=== PATIENT | female | born 1960 | race Caucasian/White ===

== ENCOUNTER 2024-04-11 14:50 | Emergency (ER) | payer OTHER, SELFPAY ==
--- NOTE | ~2024-04-11 | CT_ITS ---
EXAMINATION: CT KNEE WITHOUT CONTRAST, LEFT CLINICAL INFORMATION: Fall. Pain. COMPARISON: Plain film exam of left knee today TECHNIQUE: Axial images obtained through the left knee. Coronal and sagittal reformatted images are performed with CT scanner. This CT examination was performed using dose optimization techniques as appropriate, variously including the following: *Automated exposure control *Adjustment of mA and/or kV according to patient size (this includes techniques or standardized protocols for targeted exams where dose is matched to indication/reason for exam; i.e. extremities or head) *Use of iterative reconstruction technique DLP: 168 mGy-cm FINDINGS: No acute fracture. No dislocation. No lipohemarthrosis. There is a small joint effusion. There is marked degenerative change of the femoral-tibial joint. There is joint narrowing and marginal bone spurs about the medial lateral femoral tibial joint. There are small spurs of the patella and the femur at the patellofemoral joint. CT/CT knee LT wo IV con IMPRESSION: 1. No acute fracture or dislocation. 2. Small joint effusion. 3. Degenerative change of the knee. Electronically signed by: Jordan Morrison MD 04/11/2024 08:49 PM EDT
--- NOTE | ~2024-04-11 | XR_ITS ---
EXAMINATION: XR WRIST, LEFT CLINICAL INFORMATION: Radial and ulnar fractures COMPARISON: Wrist radiographs April 11, 2024 TECHNIQUE: PA, lateral, and oblique views of the left wrist. FINDINGS: Status post splinting with no significant change in the comminuted, mildly displaced intra-articular fracture of the distal radius, and ulnar styloid. Soft tissue swelling around the wrist. No new fractures identified. XR/XR wrist LT 2V IMPRESSION: Status post splinting with no significant change in the comminuted, mildly displaced intra-articular fracture of the distal radius, and ulnar styloid. Electronically signed by: Fabrizio Roldan MD 04/11/2024 08:23 PM EDT
--- NOTE | ~2024-04-11 | XR_ITS ---
EXAMINATION: XR KNEE, LEFT CLINICAL INFORMATION: Fall COMPARISON: None available. TECHNIQUE: Four views of the left knee. FINDINGS: No significant joint effusion. Bones are normal anatomic alignment with no acute fracture or dislocation. Tricompartmental degenerative changes seen more so in the lateral compartment with more significant loss of joint height, subchondral sclerosis, and osteophyte formation. XR/XR knee LT 3V IMPRESSION: Tricompartmental degenerative changes but no acute fracture or dislocation. Electronically signed by: Ziggy Webb MD 04/11/2024 05:49 PM EDT
--- NOTE | ~2024-04-11 | CT_ITS ---
EXAMINATION: CT HEAD WITHOUT CONTRAST CT CERVICAL SPINE WITHOUT CONTRAST CLINICAL INFORMATION: Fall. COMPARISON: None. TECHNIQUE: Contiguous axial imaging was performed from the skullbase to vertex without intravenous administration of contrast. Multidetector helical imaging was performed through the cervical spine. This CT examination was performed using dose optimization techniques as appropriate, variously including the following: *Automated exposure control *Adjustment of mA and/or kV according to patient size (this includes techniques or standardized protocols for targeted exams where dose is matched to indication/reason for exam; i.e. extremities or head) *Use of iterative reconstruction technique DLP: 1108 mGy-cm. FINDINGS: HEAD: There is no evidence of acute intracranial hemorrhage or territorial infarction. No abnormal mass effect or midline shift is seen. No extra-axial fluid collections are identified. Mild chronic white matter microangiopathic changes noted. No evidence of hydrocephalus. There is a chronic-appearing 7 mm lacunar infarct in the right paramedian kayy. Small lacunar infarcts are visible in the basal ganglia bilaterally. The osseous structures and soft tissues are normal. The mastoid air cells are well aerated. There is mild ethmoid sinus mucosal thickening. Moderate rightward nasal septal deviation. Secretions are present within both nasal passages. There are suspected polyps in the posterior nasal passages as well, partially protruding into the anterior nasopharyngeal airway. CERVICAL SPINE: No acute fracture or significant subluxation is identified in the cervical spine. There is severe disc space narrowing with endplate spurring at the C6-C7 level. Multilevel facet arthropathy present. The atlantoaxial articulation is normally maintained with moderate degenerative changes at the odontoid tip and anterior arch of C1. The paraspinal soft tissues are normal. Subsegmental atelectatic changes partially visualized in the lungs. CT/CT cervical spine wo IV con IMPRESSION: 1. No acute intracranial hemorrhage or territorial infarction. Chronic-appearing pontine lacunar infarct. Small lacunar infarcts in the basal ganglia which are age-indeterminate. If there is concern for an underlying acute ischemic process, recommend further evaluation with follow-up MR imaging. 2. No evidence of acute cervical spine traumatic injury. Severe spondylosis at the C6-C7 level. Multilevel facet arthropathy. Electronically signed by: John Sky MD 04/11/2024 04:43 PM EDT
--- NOTE | ~2024-04-11 | XR_ITS ---
EXAMINATION: XR WRIST, LEFT CLINICAL INFORMATION: Fall COMPARISON: None available. TECHNIQUE: PA, lateral, and oblique views of the left wrist. FINDINGS: Comminuted mildly displaced intra-articular fracture along the radial margin of the distal radius. Moderately displaced ulnar styloid fracture. Negative ulnar variance. Joint space and alignment are otherwise maintained. Soft tissue swelling overlying the dorsum of the wrist. XR/XR wrist LT min 3V IMPRESSION: 1. Comminuted mildly displaced intra-articular fracture along the radial margin of the distal radius. 2. Moderately displaced ulnar styloid fracture. 3. Negative ulnar variance. 4. Soft tissue swelling overlying the dorsum of the wrist. Electronically signed by: Dyllan Adkins MD 04/11/2024 04:10 PM EDT
[2024-04-11 15:00] VITALS: BP 188/96; PULSE 96; RESP 16; TEMP 36.6; O2SAT 95; BMI 37.3
--- NOTE | 2024-04-11 16:37 | ED_ITS ---
HPI - General Adult General Chief complaint: Fall Stated complaint: FALL,L WRIST PAIN/DEFORMITY,L KNEE PAIN PER EMS Time Seen by Provider: 04/11/24 16:08 History of Present Illness ED Provider: Sam HPI narrative: 63 y/o F patient; PMH breast CA on anastrazole; presents from out-patient office visit with report of mechanical trip and fall. The patient states the side walk had an unexpected curve and she fell forward. She landed on her left knee and then fell onto her head. She was going to hit face first with her glasses but used her left wrist to block her face. She does think she lost consciousness. EMS was called as should could not stand up and ambulate. EMS were concerned about a left wrist deformity. She otherwise denies: nausea/vomiting, headache, visual changes, chest pain, SOB, cough/congestion. Patient is not on anti- coagulation. Related Data Previous Rx's ?Medication ?Instructions ?Recorded oxycodone 5 mg capsule 5 mg PO Q6H PRN pain 3 days #9 caps 04/11/24 Allergies Allergy/AdvReac Type Severity Reaction Status Date / Time bee pollen [bee stings] Allergy Anaphylaxis Verified 04/11/24 15:04 latex Allergy Rash Verified 04/11/24 15:04 Review of Systems Review of Systems: Yes all other systems are reviewed and are negative Neurologic: Denies Sensory deficit (Neuro) PMF Past Medical History Attestation statement: The following information was validated with the patient. Source: unable to obtain Social History Social History Advance Directives: Yes Advance Directives Information Provided: No Advance Directives on File: No Do you have a plan to hurt others: No Plan Physical Exam ED Vital Signs: Vital Signs - 24 hr 04/11/24 15:00 04/11/24 18:43 Temperature 97.9 F 98.0 F Pulse Rate 96 102 H Respiratory Rate 16 20 Blood Pressure 188/96 H 157/98 H Pulse Oximetry 95 96 Oxygen Delivery Method Room Air Room Air BMI result Body Mass Index 37.3 Patient is afebrile, hypertensive, and hemodynamically stable. Const General: cooperative Orientation/consciousness: patient oriented x3 HENMT Head: Yes normal to inspection and Yes atraumatic Eyes General: appearance normal, both eyes and all related structures Pupils: Equal, round and reactive pupils present EOM: EOMs intact bilaterally Neck Other: c-collar in place Neck: No tender Chest Chest palpation & inspection: normal inspection of the chest and normal palpation of entire chest wall Resp Effort & Inspection: normal respiratory effort, able to speak in complete sentences and no respiratory distress Auscultation: clear to auscultation bilaterally Cardio Rate: regular rate Rhythm: regular rhythm Peripheral pulses: Peripheral pulses 2+ throughout GI Inspection: No Abdominal wall edema and No distended Palpation (GI): Soft to palpation, not firm, nontender, no guarding and not rigid Auscultation: normal bowel sounds Back/Spine/Pelvis Back: No back tenderness Neuro General: patient oriented x3 Cranial nerves: Yes Equal, round and reactive pupils present Motor exam (neuro): 5/5 motor strength present throughout Sensory Exam: No Sensory deficit (Neuro) Extrem Other: Left wrist deformity. Small medial abrasion. No elbow or hand tenderness/pain. NVI. Left knee abrasion. Pain with range of left knee. NVI. No foot/ankle/tibia/fibula/hip pain/tenderness. Atraumatic right upper and lower extremities. Course Course Course Narrative: Patient is afebrile, hypertensive, hemodynamically stable. Will obtain CT Head/Neck. XR Left wrist and XR Left knee. CT head and neck unremarkable for acute trauma. XR left wrist with comminuted mildly displaced intra-articular fx along the radial margin of the distal radius, moderately displaced ulnar styloid fracture. XR left knee without acute fx. Ordered CT LLE due to patient's continued pain and inability to ambulate. Please see procedure note for hematoma block and splint placement on left wrist. Patient received pain control with Oxycodone 5mg x2 and Ativan 1mg x1. CT lower extremity is unremarkable. Patient is ambulating without difficulty now. Plan for padmaja wrap left knee. Provided dose of Anastrazole in the ED. Discharge to home with orthopedic follow up Return precautions given Medications Administered Discontinued Medications Generic Name Dose Route Start Last Admin Trade Name Freq PRN Reason Stop Dose Admin Anastrozole 1 mg 04/11/24 19:08 04/11/24 20:04 Anastrozole 1 Mg Tablet PO 04/11/24 19:09 1 mg ONCE ONE Administration Bupivacaine HCl 10 ml 04/11/24 16:43 04/11/24 17:54 Bupivacaine Mpf 0.75 % 10 Ml Vial INFILTRATI 04/11/24 16:44 10 ml ONCE ONE Administration Lidocaine/Epinephrine 10 ml 04/11/24 16:43 04/11/24 17:54 Lidocaine Hcl 2% Pf/Epi 1:200 20 Ml Vial INFILTRATI 04/11/24 16:44 10 ml ONCE ONE Administration Lorazepam 1 mg 04/11/24 17:46 04/11/24 17:52 Lorazepam 1 Mg Tablet PO 04/11/24 17:47 1 mg ONCE ONE Administration Oxycodone HCl 5 mg 04/11/24 16:37 04/11/24 17:03 Oxycodone Hcl Immed Release 5 Mg Tablet PO 04/11/24 16:38 5 mg ONCE ONE Administration Oxycodone HCl 5 mg 04/11/24 17:46 04/11/24 17:52 Oxycodone Hcl Immed Release 5 Mg Tablet PO 04/11/24 17:47 5 mg ONCE ONE Administration Procedures Orthopedic Fracture Reduction Fracture #1: Time Out Performed: Yes Side: left Fracture Reduction Location: radius and ulna Analgesia: hematoma block Technique: traction/counter-traction Post Reduction X-rays Demonstrate: anatomical reduction Post-reduction neuro exam: intact Post-reduction vascular exam: intact Splint Applied: Yes Patient Tolerated Procedure: well Orthopedic Splinting/Casting Injury #1: Side: left Upper Extremity Injury Location: wrist Upper Extremity Immobilizer: sling/shoulder immobilizer and sugar tong splint Medical Decision Making Radiology Impression Discussion of test interpretation with radiology: I have reviewed the radiologist's reading. Radiologist Impression: EXAMINATION: CT HEAD WITHOUT CONTRAST CT CERVICAL SPINE WITHOUT CONTRAST CLINICAL INFORMATION: Fall. COMPARISON: None. TECHNIQUE: Contiguous axial imaging was performed from the skullbase to vertex without intravenous administration of contrast. Multidetector helical imaging was performed through the cervical spine. This CT examination was performed using dose optimization techniques as appropriate, variously including the following: *Automated exposure control *Adjustment of mA and/or kV according to patient size (this includes techniques or standardized protocols for targeted exams where dose is matched to indication/reason for exam; i.e. extremities or head) *Use of iterative reconstruction technique DLP: 1108 mGy-cm. FINDINGS: HEAD: There is no evidence of acute intracranial hemorrhage or territorial infarction. No abnormal mass effect or midline shift is seen. No extra-axial fluid collections are identified. Mild chronic white matter microangiopathic changes noted. No evidence of hydrocephalus. There is a chronic-appearing 7 mm lacunar infarct in the right paramedian kayy. Small lacunar infarcts are visible in the basal ganglia bilaterally. The osseous structures and soft tissues are normal. The mastoid air cells are well aerated. There is mild ethmoid sinus mucosal thickening. Moderate rightward nasal septal deviation. Secretions are present within both nasal passages. There are suspected polyps in the posterior nasal passages as well, partially protruding into the anterior nasopharyngeal airway. CERVICAL SPINE: No acute fracture or significant subluxation is identified in the cervical spine. There is severe disc space narrowing with endplate spurring at the C6-C7 level. Multilevel facet arthropathy present. The atlantoaxial articulation is normally maintained with moderate degenerative changes at the odontoid tip and anterior arch of C1. The paraspinal soft tissues are normal. Subsegmental atelectatic changes partially visualized in the lungs. CT/CT cervical spine wo IV con IMPRESSION: 1. No acute intracranial hemorrhage or territorial infarction. Chronic-appearing pontine lacunar infarct. Small lacunar infarcts in the basal ganglia which are age-indeterminate. If there is concern for an underlying acute ischemic process, recommend further evaluation with follow-up MR imaging. 2. No evidence of acute cervical spine traumatic injury. Severe spondylosis at the C6-C7 level. Multilevel facet arthropathy. Electronically signed by: John Sky MD 04/11/2024 04:43 PM EDT EXAMINATION: XR WRIST, LEFT CLINICAL INFORMATION: Fall COMPARISON: None available. TECHNIQUE: PA, lateral, and oblique views of the left wrist. FINDINGS: Comminuted mildly displaced intra-articular fracture along the radial margin of the distal radius. Moderately displaced ulnar styloid fracture. Negative ulnar variance. Joint space and alignment are otherwise maintained. Soft tissue swelling overlying the dorsum of the wrist. XR/XR wrist LT min 3V IMPRESSION: 1. Comminuted mildly displaced intra-articular fracture along the radial margin of the distal radius. 2. Moderately displaced ulnar styloid fracture. 3. Negative ulnar variance. 4. Soft tissue swelling overlying the dorsum of the wrist. Electronically signed by: Dyllan Adkins MD 04/11/2024 04:10 PM EDT EXAMINATION: XR KNEE, LEFT CLINICAL INFORMATION: Fall COMPARISON: None available. TECHNIQUE: Four views of the left knee. FINDINGS: No significant joint effusion. Bones are normal anatomic alignment with no acute fracture or dislocation. Tricompartmental degenerative changes seen more so in the lateral compartment with more significant loss of joint height, subchondral sclerosis, and osteophyte formation. XR/XR knee LT 3V IMPRESSION: Tricompartmental degenerative changes but no acute fracture or dislocation. Electronically signed by: Ziggy Webb MD 04/11/2024 05:49 PM EDT EXAMINATION: CT KNEE WITHOUT CONTRAST, LEFT CLINICAL INFORMATION: Fall. Pain. COMPARISON: Plain film exam of left knee today TECHNIQUE: Axial images obtained through the left knee. Coronal and sagittal reformatted images are performed with CT scanner. This CT examination was performed using dose optimization techniques as appropriate, variously including the following: *Automated exposure control *Adjustment of mA and/or kV according to patient size (this includes techniques or standardized protocols for targeted exams where dose is matched to indication/reason for exam; i.e. extremities or head) *Use of iterative reconstruction technique DLP: 168 mGy-cm FINDINGS: No acute fracture. No dislocation. No lipohemarthrosis. There is a small joint effusion. There is marked degenerative change of the femoral-tibial joint. There is joint narrowing and marginal bone spurs about the medial lateral femoral tibial joint. There are small spurs of the patella and the femur at the patellofemoral joint. CT/CT knee LT wo IV con IMPRESSION: 1. No acute fracture or dislocation. 2. Small joint effusion. 3. Degenerative change of the knee. Electronically signed by: Jordan Morrison MD 04/11/2024 08:49 PM EDT Discharge Plan Discharge Clinical Impression: Fracture of wrist Patient Disposition: Home, Self-Care Instructions: Arm Fracture in Adults (ED) Additional Instructions: As we discussed, you were seen today after a fall. Your CT Head and Neck were reassuring. Your XR of your left wrist showed a broken ulna and radius, you were placed in a splint. Please call to schedule an appointment with orthopedics within 1 day. The pain medication as following: Tylenol 650mg every 6 hours Ibuprofen 400mg every 6 hours Oxycodone every 6 hours as needed Tylenol @ 8am Ibuprofen @ 11am Tylenol @ 2pm Ibuprofen @ 5pm Etc. Then add the oxycodone if you're still having pain. Follow up with your PCP within 1 - 2 days for a re-evaluation and to discuss your recent ED visit. Prescriptions: New oxycodone 5 mg capsule 5 mg PO Q6H PRN (Reason: pain) 3 Days Qty: 9 0RF Rx Instructions: Partial Fill upon patient request. Referrals: Herman Cesar MD [Physician] - 1 day Print Language: Citizen Of [place]
[2024-04-11] MEDS: oxyCODONE HCl Immed Release 5 MG TABLET PO ×2 (17:03→17:52)
[2024-04-11] MEDS: LORazepam 1 MG TABLET PO (17:52)
[2024-04-11] MEDS: Lidocaine HCl 2% PF/Epi 1:200 20 ML VIAL 10 ML INFILTRATI (17:54)
--- NOTE | 2024-04-11 18:37 | PC.NURSE ---
patient wrist splinted by MD, patient tolerated well.
[2024-04-11 18:43] VITALS: BP 157/98; PULSE 102; RESP 20; TEMP 36.7; O2SAT 96
--- OUTSIDE RECORDS SUMMARY | 2024-04-11 18:48 | XMS_ITS | Continuity of Care Document ---
Author Organization [facility] ter Address [address] [place] [id number]- Care Team Providers Care Wind Tunnel Engineer Name Role Phone Evie Link MD Primary Care Physician Encounter [facility] [place] Date(s): 05/12/21 - 07/06/[address] [address]- Attending Physician: Deborah Diallo MD Admitting Physician: Deborah Diallo MD Referring Physician: Robbie Arias MD Allergies, Adverse Reactions, Alerts Substance Reaction Severity Status Imitrex Active Bee Stings horase voice, diff breathing. Active Latex Active Medications albuterol 0.083% inhalation solution 3 mL = 2.5 mg, Neb, Every 6 hours, 0 Refills, Maintenance, 02/21/20 11:18:00 EDT Start Date: 02/21/20 Status: Ordered aspirin 81 mg oral delayed release tablet 81 mg, 1, tablet, By Mouth, Daily, Refills 0, Maintenance, 05/20/21 10:53:00 EDT, Partial fill uponpatient request if the prescription is for a schedule II opioid drug. Start Date: 05/20/21 Status: Ordered Bathtub chair Bathtub chair, See Instructions, # 1 units, Refills 0, Tot. Refills 0, Maintenance, Use during bathing so arm is not submerged in water, 05/20/15 14:53:24, Compound Start Date: 05/20/15 Status: Ordered cholestyramine 4 g/5.5 g oral powder for reconstitution = 4 Gm, By Mouth, 2 times a day, 0 Refills, Maintenance, 02/21/20 11:18:00 EDT Start Date: 02/21/20 Status: Ordered EpiPen 2-[place] 0.3 mg injectable kit = 0.3 mg, Intramuscular, Once, For use with severe allergic reaction give one injection in the middle thigh, # 1 pair, 0 Refills, Soft Stop, 02/04/15 21:31:49 Start Date: 02/04/15 Status: Ordered Estrace Vaginal Cream 0.1 mg/g See Instructions, Pea-sized amount daily vaginally Daily at bedtime x 2 weeks and then three times weekly., # 42.5 Gm, 0 Refills, Maintenance, 04/03/20 10:26:00 EDT, [facility] #[id number], 166,cm, 02/21/20 10:50:00 EDT, Height, 102.1, kg, 02/20... Start Date: 04/03/20 Status: Ordered Flovent 110 mcg Inhaler HFA Refills 0, Maintenance, 02/21/20 11:18:00 EDT Start Date: 02/21/20 Status: Ordered hydrochlorothiazide 25 mg oral tablet 25 mg, 1, tablet, By Mouth, Daily, Refills 0, Maintenance, 02/21/20 11:17:00 EDT Start Date: 02/21/20 Status: Ordered Lipitor 40 mg oral tablet 1 tablet = 40 mg, By Mouth, Daily, 0 Refills, Maintenance, 02/21/20 11:17:00 EDT Start Date: 02/21/20 Status: Ordered losartan 100 mg oral tablet 1 tablet = 100 mg, By Mouth, Daily, 0 Refills, Maintenance, 02/21/20 11:10:00 EDT Start Date: 02/21/20 Status: Ordered losartan 25 mg oral tablet 1 tablet = 25 mg, By Mouth, Daily, # 30 tablet, 0 Refills, Maintenance, 04/15/15 9:34:58, Tablet Start Date: 04/15/15 Status: Ordered Naproxen By Mouth, PRN as needed for fever, 0 Refills, Maintenance, 06/28/17 9:29:02 Start Date: 06/28/17 Status: Ordered NuLYTELY with Flavor Packs oral powder for reconstitution 240 mL, By Mouth, Every 15 minutes, # 4,000 mL, 0 Refills, Maintenance, 06/28/17 9:47:41, 240 mL ByMouth Every 15 minutes Start Date: 12/4/17 Status: Ordered Pravastatin Tablet By Mouth, Daily at bedtime, Maintenance, 04/15/15 9:36:40 Start Date: 04/15/15 Status: Ordered Readi-Cat 2 oral suspension See Instructions, Per radiology's instructions, # 2 each, 0 Refills, Maintenance, 05/20/21 11:29:00EDT, [facility] #[id number], Partial fill upon patient request if the prescription is for a schedule II opioid drug., Per radiology's instructions... Start Date: 05/20/21 Status: Ordered SEROquel 50 mg oral tablet 1 tablet = 50 mg, By Mouth, 2 times a day, 0 Refills, Maintenance, 02/21/20 11:10:00 EDT Start Date: 02/21/20 Status: Ordered Vitamin B-12 100 mcg oral tablet 100 mcg, 1, tablet, By Mouth, Daily, Refills 0, Maintenance, 02/21/20 11:17:00 EDT Start Date: 02/21/20 Status: Ordered Zoloft 100 mg oral tablet 1 tablet = 100 mg, By Mouth, Daily, 0 Refills, Maintenance, 02/21/20 11:17:00 EDT Start Date: 02/21/20 Status: Ordered Problem List Condition Effective Dates Status Health Status Inform ant ASCUS (atypical squamous eliud ls of undetermined significance) on Pap smear(Confirmed) Active Anxiety(Confirmed) Active Cholelithiasis(Confirmed) Active Depression(Confirmed) Active Dyslipidemia(Confirmed) Active Rectocele(Confirmed) Active Hypertension(Confirmed) Active Urinary incontinence, mixed(Confirmed) Active Panic disorder(Confirmed) Active Sleep apnea(Confirmed) Active Social History Social History Type Response Smoking Status Never smoker entered on: 10/10/15 Sex Female
--- OUTSIDE RECORDS SUMMARY | 2024-04-11 18:48 | XMS_ITS | Continuity of Care Document ---
Author Organization [facility] Address [address] [place] [address]- Care Team Providers Care Sales Representative Public Utilities Name Role Phone Evie Link MD Primary Care Physician Encounter [facility] [place] Date(s): 06/03/22 - 07/03/[address] [address]- Attending Physician: Max Guevara Admitting Physician: Max Guevara Referring Physician: AdmtrMax Allergies, Adverse Reactions, Alerts Substance Reaction Severity Status Imitrex Active Bee Stings horase voice, diff breathing. Active Latex Active Medications acetaminophen 325 mg oral tablet 650 mg, By Mouth, Every 6 hours, May take OTC not to exceed 3000 mg/day, Refills 0, Maintenance, 12/13/21 8:04:00 EDT, Partial fill upon patient request if the prescription is for a schedule II opioid drug. Start Date: 12/13/21 Status: Ordered Aspirin Tablet 325 mg, By Mouth, 2 times a day, Refills 0, Maintenance, 12/13/21 8:04:00 EDT, Partial fill upon patient request if the prescription is for a schedule II opioid drug. Start Date: 12/13/21 Status: Ordered celecoxib 200 mg oral capsule 1 capsule = 200 mg, By Mouth, Daily, 0 Refills, Maintenance, 12/13/21 8:04:00 EDT, Capsule, Partialfill upon patient request if the prescription is for a schedule II opioid drug. Start Date: 12/13/21 Status: Ordered Colace Capsule 100 mg, 1, capsule, By Mouth, 2 times a day, Refills 0, Maintenance, 12/13/21 8:04:00 EDT, Partial fill upon patient request if the prescription is for a schedule II opioid drug. Start Date: 12/13/21 Status: Ordered hydrochlorothiazide-losartan 25 mg-100 mg oral tablet TAKE 1 TABLET BY MOUTH EVERY DAY Start Date: 12/05/21 Status: Ordered MiraLax Powder 1 pack/packet = 17 Gm, By Mouth, Daily, PRN Constipation, 0 Refills, Maintenance, 12/13/21 8:04:00 EDT, Powder, Partial fill upon patient request if the prescription is for a schedule II opioid drug. Start Date: 12/13/21 Status: Ordered pantoprazole 40 mg oral delayed release tablet = 40 mg, By Mouth, Daily, 0 Refills, Maintenance, 12/13/21 8:04:00 EDT, [facility] Tablet Start Date: 12/13/21 Status: Ordered QUEtiapine 25 mg oral tablet 50 mg, 2, tablet, By Mouth, Daily at bedtime, Refills 0, Maintenance, 12/13/21 8:05:00 EDT, Partialfill upon patient request if the prescription is for a schedule II opioid drug. Start Date: 12/13/21 Status: Ordered senna 187 mg oral tablet 1 tablet = 8.6 mg, By Mouth, Daily at bedtime, PRN as needed for constipation, 0 Refills, Maintenance, 12/13/21 8:05:00 EDT, Tablet, Partial fill upon patient request if the prescription is for a schedule II opioid drug. Start Date: 12/13/21 Status: Ordered Problem List Condition Confirmation Course Effective Dates Status H ealth Status Informant ASCUS (atypical squamous cells of undetermined significance) on Pap smear Confirmed Active Anxiety Confirmed Active Cholelithiasis Confirmed Active Depression Confirmed Active Dyslipidemia Confirmed Active Rectocele Confirmed Active Hypertension Confirmed Active Breast cancer Confirmed Active Urinary incontinence, mixed Confirmed Active Obese class II Confirmed Active Panic disorder Confirmed Active Sleep apnea Confirmed Active Social History Social History Type Response Smoking Status Never smoker entered on: 10/10/15 Sex Female Patient Care team information Care Team Personnel Name: Evie Link MD Position: [facility] Outreach Member Role: PCP Address: Address: [address] Evie Link [place], [place] [address] Name: Martha Rangel RN Position: [facility] RN Member Role: Primary Care Nurse Care Team Related Persons Name: NESTOR PANDYA Address: home [address] [address] Name: ALF PANDYA Address: home [address] [id number]
--- OUTSIDE RECORDS SUMMARY | 2024-04-11 18:48 | XMS_ITS | Continuity of Care Document ---
Author Organization [facility] Address [address] [place] [phone]- Care Team Providers Care Thermo Processor Name Role Phone Evie Link MD Primary Care Physician [phone] [place] [facility] [place] [facility] [address] [place] [address]- Attending Physician: Bre Riggs NP Referring Physician: Evie Link MD Allergies, Adverse Reactions, Alerts Substance Reaction [...] Gm, 0 Refills, Maintenance, 04/03/20 10:26:00 EDT, [facility] #[id number], 166,cm, 02/21/20 10:50:00 EDT, Height, 102.1, kg, [...] mL ByMouth Every 15 minutes Start Date: 06/28/17 Status: Ordered Readi-Cat 2 oral suspension See Instructions, Per radiology's instructions, # 2 each, 0 Refills, Maintenance, 05/20/21 11:29:00EDT, [facility] #[id number], Partial fill upon patient request if the [...] 11:17:00 EDT Start Date: 02/21/20 Status: Ordered Vitamin D3 1000 intl units oral tablet 1 tablet = 25 mcg, By Mouth, Daily, 0 Refills, Maintenance, 10/29/21 14:06:00 EDT, Partial fill upon patient request if the prescription is for a schedule II opioid drug. Start Date: 10/29/21 Status: Ordered Zoloft 100 mg oral tablet [...] Urinary incontinence, mixed(Confirmed) Active Panic disorder(Confirmed) Active Severe obesity(Confirmed) Active Sleep apnea(Confirmed) Active Social History Social History Type Response Smoking Status Never smoker entered on: 10/10/15 Sex Female
--- OUTSIDE RECORDS SUMMARY | 2024-04-11 18:48 | XMS_ITS | Continuity of Care Document ---
Author Organization [facility] Address [address] [place] [address]- Care Team Providers Care Digital Associate Media Director Name Role Phone Nikolay THOMPSON, Evie Denis Primary Care Physician [phone] [place] [facility] [place] [facility] [address] [place] [address]- Attending Physician: Bre Riggs NP Referring Physician: [...] Gm, 0 Refills, Maintenance, 04/03/20 10:26:00 EDT, [facility] #[id number], 166,cm, 02/21/20 10:50:00 EDT, Height, 102.1, kg, [...] 15 minutes Start Date: 06/28/17 Status: Ordered Pravastatin Tablet By Mouth, Daily at bedtime, Maintenance, 04/15/15 9:36:40 Start Date: 04/15/15 Status: Ordered Readi-Cat 2 oral suspension See Instructions, Per radiology's instructions, # 2 each, 0 Refills, Maintenance, 05/20/21 11:29:00EDT, [facility] #[id number], Partial fill upon patient request if the [...] Active Severe obesity(Confirmed) Active Sleep apnea(Confirmed) Active Vital Signs Most recent to oldest [Reference Range]: 1 2 Height 166 cm (09/24/21 2:24 PM) 166 cm (09/17/21 3:07 PM) Weight 111.1 kg (09/24/21 2:24 PM) 111.1 kg (09/17/21 3:07 PM) Oxygen Saturation [94-100 %] 96 % (09/17/21 3:07 PM) Pulse Rate [55-90 bpm] 94 bpm *H* (09/17/21 3:07 PM) Body Mass Index [18.5-24.99] 40.32 *>HHI* (09/17/21 3:07 PM) Blood Pressure [90-138/55-84 mm Hg] 131/ 75mm Hg (09/17/21 3:07 PM) Temperature [96.8-100.4 DegF] 97.3 DegF (09/17/21 3:07 PM) Blood pressure sites Arm, left (09/17/21 3:07 PM) Temperature Route Temporal (09/17/21 3:07 PM) Social History Social History Type Response Smoking Status Never smoker entered on: 10/10/15 Sex Female
--- OUTSIDE RECORDS SUMMARY | 2024-04-11 18:48 | XMS_ITS | Continuity of Care Document ---
Author Organization [facility] Address [address] [place] [address]- Care Team Providers Care Final Touch Up Painter Name Role Phone Evie Link MD Primary Care Physician En[place] [facility] [place] Date(s): 09/17/21 - 10/17/21 [facility] [address] [place] [address]- Attending Physician: Max Guevara Admitting Physician: Max [...] Gm, 0 Refills, Maintenance, 04/03/20 10:26:00 EDT, [facility] #[id number], 166,cm, 02/21/20 10:50:00 EDT, Height, 102.1, kg, [...] 2 each, 0 Refills, Maintenance, 05/20/21 11:29:00EDT, [facility] #[id number], Partial fill upon patient request if the [...]
--- OUTSIDE RECORDS SUMMARY | 2024-04-11 18:48 | XMS_ITS | Continuity of Care Document ---
Author Organization [facility] Address [address] [facility], 4t [place] [address]- Care Team Providers Care Ec Teacher Name Role Phone Evie Link MD Primary Care Physician [id number] Date[facility] 11/08/[facility] - 11/18/19 [facility] [address] [facility], 4th [place] [address]- Attending Physician: Admtr, Sheng8 Admitting Physician: Admtr, Ar8 Referring Physician: Admtr, Ar8 Allergies, Adverse Reactions, Alerts Substance Reaction Severity Status Imitrex Active Bee Stings horase voice, diff breathing. Active Latex Active Medications Bathtub chair Bathtub chair, See Instructions, # 1 units, Refills 0, Tot. Refills 0, Maintenance, Use during bathing so arm is not submerged in water, 05/20/15 14:53:24, Compound Start Date: 05/20/15 Status: Ordered EpiPen 2-Chapincito 0.3 mg injectable kit = 0.3 mg, Intramuscular, Once, For use with severe allergic reaction give one injection in the middle thigh, # 1 pair, 0 Refills, Soft Stop, 02/04/15 21:31:49 Start Date: 02/04/15 Status: Ordered losartan 25 mg oral tablet [...] 04/15/15 9:36:40 Start Date: 04/15/15 Status: Ordered Problem List Condition Effective Dates Status Health Status Inform ant ASCUS (atypical squamous eliud ls of undetermined significance) on Pap smear(Confirmed) Active Anxiety(Confirmed) Active Cholelithiasis(Confirmed) Active Depression(Confirmed) Active Dyslipidemia(Confirmed) Active Hypertension(Confirmed) Active Panic disorder(Confirmed) Active Sleep apnea(Confirmed) Active Urge urinary incontinence(Confirmed) Active Social History Social History Type Response Smoking Status Never smoker entered on: 10/10/15 Sex Female
--- OUTSIDE RECORDS SUMMARY | 2024-04-11 18:48 | XMS_ITS | Continuity of Care Document ---
Author Organization [facility] Address [address] [place] [address]- Care Team Providers Care Gauge Maker Apprentice Name Role Phone Evie Link MD Primary Care Physician [phone] Encounter 12/15/21 - 12/24/21 [facility] [address] [place] [address]- Discharge Disposition: GOALS MET Allergies, Adverse Reactions, Alerts Substance Reaction Severity [...] Date: 12/13/21 Status: Ordered Problem List Condition Effective Dates Status Health Status Inform ant ASCUS (atypical squamous eliud ls of undetermined significance) on Pap smear(Confirmed) Active Anxiety(Confirmed) Active Cholelithiasis(Confirmed) Active Depression(Confirmed) Active Dyslipidemia(Confirmed) Active Rectocele(Confirmed) Active Hypertension(Confirmed) Active Urinary incontinence, mixed(Confirmed) Active Obese class II(Confirmed) Active Panic disorder(Confirmed) Active Sleep apnea(Confirmed) Active Social History Social History Type Response Smoking Status Never smoker entered on: 10/10/15 Sex Female
--- OUTSIDE RECORDS SUMMARY | 2024-04-11 18:48 | XMS_ITS | Continuity of Care Document ---
Author Organization [facility] Address [address] [place] [address]- Care Team Providers Care Sports Physiotherapist Name Role Phone Evie Link MD Primary Care Physician [phone] Encounter [facility] [place] Date(s): 08/02/19 - 08/12/[address] [address]- [facility] Attending Physician: AdmMax galarza Admitting Physician: AdmtrMax Referring Physician: Admtr, Sheng8 Allergies, Adverse Reactions, Alerts Substance Reaction Severity [...]
--- OUTSIDE RECORDS SUMMARY | 2024-04-11 18:48 | XMS_ITS | Continuity of Care Document ---
Author Organization [facility] ter Address [address] [place] [address]- Care Team Providers Care Thermal Intelligence Analyst Name Role Phone Evie Link MD Primary Care Physician Encounter [facility] [place] Date(s): 06/09/21 - 07/10/[address] [address]- Attending Physician: Robbie Arias MD Admitting Physician: Robbie Arias MD Referring Physician: Robbie Arias MD Allergies, [...] Gm, 0 Refills, Maintenance, 04/03/20 10:26:00 EDT, [facility] #[id number], 166,cm, 02/21/20 10:50:00 EDT, Height, 102.1, kg, [...] Refills, Maintenance, 05/20/21 11:29:00EDT, [facility] #[id number], Partial fill upon patient request if the [...]
--- OUTSIDE RECORDS SUMMARY | 2024-04-11 18:48 | XMS_ITS | Continuity of Care Document ---
Author Organization [facility] Address [address] [place] [address]- Care Team Providers Care Carburizing Furnace Operator Name Role Phone Evie Link MD Primary Care Physician [phone] [id number] Date[facility] 02/11/22 - 05/31/[address] [address] Attending Physician: Not on Staff, Attending MD Allergies, Adverse Reactions, Alerts Substance Reaction [...] Active Rectocele Confirmed Active Hypertension Confirmed Active Urinary incontinence, mixed Confirmed Active Obese class II Confirmed Active Panic disorder Confirmed Active Sleep apnea Confirmed Active Social History Social History Type Response Smoking Status Never smoker entered on: 10/10/15 Sex Female Patient Care team information Personnel Name: Evie Likn MD Address: Address: [address] [place] [address] [address] Evie Link MD [place], [facility]
--- OUTSIDE RECORDS SUMMARY | 2024-04-11 18:48 | XMS_ITS | Continuity of Care Document ---
Author Organization [facility] Address [address] [place] [address]- Care Team Providers Care Plastic Surgery Nurse Name Role Phone Evie Link MD Primary Care Physician [place] [facility] [place] 10/06/[place] - 12/03/21 [facility] [address] [place] [address]- Attending Physician: Oneil QUINTERO, Bre Jay Admitting Physician: Oneil QUINTERO, Bre Jay Referring Physician: Evie Link MD Allergies, Adverse [...] Gm, 0 Refills, Maintenance, 04/03/20 10:26:00 EDT, [facility] #[id number], 166,cm, 02/21/20 10:50:00 EDT, Height, 102.1, kg, [...] 2 each, 0 Refills, Maintenance, 05/20/21 11:29:00EDT, [facility] #[id number], Partial fill upon patient request if the [...]
--- OUTSIDE RECORDS SUMMARY | 2024-04-11 18:48 | XMS_ITS | Continuity of Care Document ---
Author Organization [facility] ter Address [address] [place] [address]- Care Team Providers Care Building Dismantler Name Role Phone Evie Link MD Primary Care Physician En[facility] Date(s): 06/10/21 - 07/10/[address] [address]- Attending Physician: Admtr, Ar8 Admitting Physician: Admtr, Ar8 Referring Physician: Admtr, [...] Gm, 0 Refills, Maintenance, 04/03/20 10:26:00 EDT, [facility] #[id number], 166,cm, 02/21/20 10:50:00 EDT, Height, 102.1, kg, [...] 2 each, 0 Refills, Maintenance, 05/20/21 11:29:00EDT, [facility] #[id number], Partial fill upon patient request if the [...]
--- OUTSIDE RECORDS SUMMARY | 2024-04-11 18:48 | XMS_ITS | Continuity of Care Document ---
Author Organization [facility] ter Address [address] [place] [address]- Care Team Providers Care Booking Prizer Name Role Phone Evie Link MD Primary Care Physician [phone] Encounter [facility] [place] Date(s): 05/12/21 - 07/10/[address] [address]- Attending Physician: Robbie Arias MD Admitting Physician: Robbie Arias MD Allergies, Adverse Reactions, [...] Gm, 0 Refills, Maintenance, 04/03/20 10:26:00 EDT, [facility] #[id number], 166,cm, 02/21/20 10:50:00 EDT, Height, 102.1, kg, [...] 2 each, 0 Refills, Maintenance, 05/20/21 11:29:00EDT, [facility] #[id number], Partial fill upon patient request if the [...]
--- OUTSIDE RECORDS SUMMARY | 2024-04-11 18:49 | XMS_ITS | Continuity of Care Document ---
Author Organization [facility] Address [address] [place] [address]- Care Team Providers Care Stock Wetter Name Role Phone Evie Link MD Primary Care Physician [place] [facility] [place] 04/28/22 - 06/14/[address] [address]- Attending Physician: Not on Staff, Attending MD [...] Team Personnel Name: Evie Link MD Position: [facility] Outreach Member Role: PCP Address: Address: [address] [place] [address]- Name: Martha Rangel RN Position: [facility] RN Member Role: Primary Care Nurse Care Team Related Persons Name: NESTOR PANDYA Address: [address] [address] Name: ALF PANDYA Address: home [address] [place] [address]
--- OUTSIDE RECORDS SUMMARY | 2024-04-11 18:49 | XMS_ITS | Continuity of Care Document ---
Author Organization [facility] ter Address [address] [place] [address]- Care Team Providers Care Band Scroll Saw Operator Name Role Phone Evie Link MD Primary Care Physician Encounter [facility] [place] Date(s): 05/12/21 - 07/06/[address] [address]- Attending Physician: Robbie Arias MD Admitting Physician: [...] Gm, 0 Refills, Maintenance, 04/03/20 10:26:00 EDT, [facility] #[id number], 166,cm, 02/21/20 10:50:00 EDT, Height, 102.1, kg, [...] 11:29:00EDT, [facility] #[id number], Partial fill upon patient request if the [...]
--- OUTSIDE RECORDS SUMMARY | 2024-04-11 18:49 | XMS_ITS | Continuity of Care Document ---
Author Organization [facility] Address [address] [place] [address]- Care Team Providers Care Nursing Center Tutor Name Role Phone Evie Link MD Primary Care Physician Encounter [facility] Date(s): 10/29/21 - 11/28/21 [facility] [address] [place] [address]- Attending Physician: Max Guevara Admitting Physician: AdmMax galarza Referring Physician: Max Guevara Allergies, Adverse Reactions, Alerts Substance Reaction Severity [...] Gm, 0 Refills, Maintenance, 04/03/20 10:26:00 EDT, [facility] #[id number], 166,cm, 02/21/20 10:50:00 EDT, Height, 102.1, kg, [...] 2 each, 0 Refills, Maintenance, 05/20/21 11:29:00EDT, [facility] #[id number], Partial fill upon patient request if the [...]
--- OUTSIDE RECORDS SUMMARY | 2024-04-11 18:49 | XMS_ITS | Continuity of Care Document ---
Author Organization [facility] ter Address [address] [place] [address]- Care Team Providers Care Internal Grinding Machine Operator Name Role Phone Evie Link MD Primary Care Physician [phone] [place] [facility] [place] - 01/09/[address] [address] Attending Physician: Admtr, Max Admitting Physician: Admtr, Max Referring Physician: Admtr, Ar8 Allergies, Adverse Reactions, [...]
--- OUTSIDE RECORDS SUMMARY | 2024-04-11 18:49 | XMS_ITS | Continuity of Care Document ---
Author Organization [facility] Address [address] [place] [address]- Care Team Providers Care Technician Test Systems Name Role Phone Evie Link MD Primary Care Physician Encounter [facility] [place] Date(s): 11/03/21 - 12/03/21 [facility] [address] [place] [address]- Attending Physician: Max Guevara Admitting Physician: Max Guevara Referring Physician: Max Guevara Allergies, Adverse Reactions, [...] Gm, 0 Refills, Maintenance, 04/03/20 10:26:00 EDT, [facility] #[id number], 166,cm, 02/21/20 10:50:00 EDT, Height, 102.1, kg, [...] 2 each, 0 Refills, Maintenance, 05/20/21 11:29:00EDT, [facility] #[id number], Partial fill upon patient request if the [...]
--- OUTSIDE RECORDS SUMMARY | 2024-04-11 18:49 | XMS_ITS | Continuity of Care Document ---
Author Organization [facility] Address [address] [facility] [address] [facility], 4t [place] [address]- Care Team Providers Care Senior Software Development Manager Name Role Phone Evie Link MD Primary Care Physician [phone] [id number] Date(s): 08/10/19 - 12/08/19 [facility] [address] [facility] [address] [facility] [address] [facility], 4th [place] [address]- [facility] Attending Physician: Emerita Robin MD Referring Physician: Evie Link MD Allergies, Adverse [...]
--- OUTSIDE RECORDS SUMMARY | 2024-04-11 18:49 | XMS_ITS | Continuity of Care Document ---
Author Organization [facility] Address [address] [place] [address]- Care Team Providers Care Blood Bank Worker Name Role Phone Evie Link MD Primary Care Physician [phone] [place] [facility] [place]s): 12/05/21 - 01/04/22 [facility] [address] [place] [address]- Attending Physician: Max Guevara Admitting Physician: AdmtrMax Referring Physician: Admtr, Ar8 Allergies, Adverse Reactions, [...]
--- OUTSIDE RECORDS SUMMARY | 2024-04-11 18:49 | XMS_ITS | Continuity of Care Document ---
Author Organization [facility] ter Address [address] [place] [address]- Care Team Providers Care Surgery Teacher Name Role Phone Evie Link MD Primary Care Physician En[place] [facility] [place] Date(s): 06/04/21 - 07/12/[address] [address] Attending Physician: Melania Beyer Admitting Physician: Melania Beyer Referring Physician: Melania Beyer Allergies, Adverse Reactions, Alerts Substance Reaction Severity [...] Gm, 0 Refills, Maintenance, 04/03/20 10:26:00 EDT, [facility] #[id number], 166,cm, 02/21/20 10:50:00 EDT, Height, 102.1, kg, [...] 2 each, 0 Refills, Maintenance, 05/20/21 11:29:00EDT, [facility] #[id number], Partial fill upon patient request if the [...]
--- OUTSIDE RECORDS SUMMARY | 2024-04-11 18:49 | XMS_ITS | Continuity of Care Document ---
Author Organization [facility] Address [address] [place] [address]- Care Team Providers Care Operator Automated Process Name Role Phone Nikolay THOMPSON, Evie Denis Primary Care Physician [phone] [place] [facility] [place] 03/10/24 - 04/09/[address] [address]- Attending Physician: Max Guevara Admitting Physician: Max [...] opioid drug. Start Date: 12/13/21 Status: Ordered anastrozole 1 mg oral tablet 1 tablet = 1 mg, By Mouth, Daily, # 30 tablet, 0 Refills, Maintenance, 04/27/23 9:36:00 EDT, Tablet, Partial fill upon patient request if the prescription is for a schedule II opioid drug. Start Date: 04/27/23 Status: Ordered Aspirin Tablet 325 mg, By [...] opioid drug. Start Date: 12/13/21 Status: Ordered Eliquis 5 mg oral tablet 1 tablet = 5 mg, By Mouth, 2 times a day, # 60 tablet, 5 Refills, Maintenance, 04/27/23 9:31:00 EDT, Tablet, Partial fill upon patient request if the prescription is for a schedule II opioid drug. Start Date: 04/27/23 Status: Ordered hydrochlorothiazide-losartan 25 mg-100 mg oral tablet TAKE 1 TABLET BY MOUTH EVERY DAY Start Date: 12/05/21 Status: Ordered pantoprazole 40 mg oral delayed [...] Confirmed Active Urinary incontinence, mixed Confirmed Active Panic disorder Confirmed Active Severe obesity (BMI 35.0-39.9) with comorbidity Confirmed Active Sleep apnea Confirmed Active Social History Social History Type Response Smoking Status Never smoker entered on: 10/10/15 Sex Female Patient Care team information Care Team Personnel Name: Evie Link MD [facility] Outreach Member Role: PCP Address: Address: [address] [place] [address]- Name: Martha Rangel RN [facility] RN Member Role: Primary Care Nurse Care Team Related Persons Name: NESTOR PANDYA Address: [address] [address] Name: ALF PANDYA Address: home [address] [place] [address]
--- OUTSIDE RECORDS SUMMARY | 2024-04-11 18:49 | XMS_ITS | Continuity of Care Document ---
Author Organization [facility] ter Address [address] [place] [address]- Care Team Providers Care Maintenance Representative Name Role Phone Evie Link MD Primary Care Physician Encounter [facility] [place] Date(s): 09/12/21 - 10/22/[address] [address]- Attending Physician: Evie Link MD Admitting Physician: Evie Link MD Referring Physician: Evie Link MD Allergies, [...] Gm, 0 Refills, Maintenance, 04/03/20 10:26:00 EDT, [facility] #[id number], 166,cm, 02/21/20 10:50:00 EDT, Height, 102.1, kg, [...] 2 each, 0 Refills, Maintenance, 05/20/21 11:29:00EDT, [facility] #[id number], Partial fill upon patient request if the [...]
--- OUTSIDE RECORDS SUMMARY | 2024-04-11 18:49 | XMS_ITS | Continuity of Care Document ---
Author Organization [facility] ter Address [address] [place] [address]- Care Team Providers Care Tea And Spice Supervisor Name Role Phone Nikolay THOMPSON, Evie Denis Primary Care Physician En[place] [facility] [place] Date(s): 08/03/19 - 08/10/19 [facility] [address] [place] [address]- [facility] Attending Physician: Not on Staff, Attending MD [...]
--- OUTSIDE RECORDS SUMMARY | 2024-04-11 18:49 | XMS_ITS | Continuity of Care Document ---
Author Organization [facility] Address [address] [place] [address]- Care Team Providers Care Front Office Secretary Name Role Phone Nikolay THOMPSON, Evie Denis Primary Care Physician Encounter [facility] [place] Date(s): 02/10/22 - 03/12/[address] [address]- Allergies, Adverse Reactions, Alerts Substance Reaction Severity [...]
--- OUTSIDE RECORDS SUMMARY | 2024-04-11 18:49 | XMS_ITS | Continuity of Care Document ---
Author Organization [facility] Address [address] [place] [address]- Care Team Providers Care Food Production Worker Name Role Phone Nikolay THOMPSON, Evie Denis Primary Care Physician [phone] En[place] [facility] [place] Date(s): 11/03/23 - 02/13/24 [facility] [address] [address]- Attending Physician: Not on Staff, Attending MD [...] Team Personnel Name: Evie Link MD Position: [facility] Outreach Member Role: PCP Address: Address: [address] [place] [address]- Name: Juan Carlos CAMPA, Martha Saravia Position: [facility] RN Member Role: Primary Care Nurse Care Team Related Persons Name: YA NESTOR Address: [address] [address] Name: ALF PANDYA Address: home [address] [place] [address]
--- OUTSIDE RECORDS SUMMARY | 2024-04-11 18:49 | XMS_ITS | Continuity of Care Document ---
Author Organization [facility] Address [address] [place] [address]- Care Team Providers Care Supervisor Steno Pool Name Role Phone Nikolay THOMPSON, Evie Denis Primary Care Physician Encounter [place] Date(s): 09/24/23 - 10/24/23 [facility] [address] [address]- Allergies, Adverse Reactions, Alerts Substance Reaction Severity [...] Team Personnel Name: Evie Link MD Position: [facility] Outreach Member Role: PCP Address: Address: [address] [place] [address] [address] [place] [address]- Name: Juan Carlos CAMPA, Martha Saravia Position: [facility] RN Member Role: Primary Care Nurse Care Team Related Persons Name: NESTOR PANDYA Address: [address] [address] Name: ALF PANDYA Address: home [address] [place] [address]
--- OUTSIDE RECORDS SUMMARY | 2024-04-11 18:49 | XMS_ITS | Continuity of Care Document ---
Author Organization [facility] Address [address] [place] [address]- Care Team Providers Care Aeronautical Test Engineer Name Role Phone Evie Link MD Primary Care Physician [place] [facility] [place] 11/06/21 - 01/04/22 [facility] [address] [place] [address]- Attending Physician: Samuel Rosenthal MD Admitting Physician: Samuel Rosenthal MD Referring Physician: Robbie Arias MD Allergies, [...]
--- OUTSIDE RECORDS SUMMARY | 2024-04-11 18:49 | XMS_ITS | Continuity of Care Document ---
Author Organization [facility] ter Address [address] [place] [address]- Care Team Providers Care Engineer Automated Equipment Name Role Phone Evie Link MD Primary Care Physician [phone] Encounter [facility] [place] Date(s): 12/12/21 - 12/14/[address] [address] Discharge Disposition: A-Transfer VNA/Home Health Attending Physician: Robbie Arias MD Admitting Physician: [...] opioid drug. Start Date: 12/13/21 Status: Ordered Dilaudid Tablet 2 mg, Tablet, By Mouth, Every 4 hours, PRN for Pain , Moderate, Routine, 12/12/21 12:08:00 EDT Start Date: 12/12/21 Stop Date: 12/14/21 Status: Discontinued hydrochlorothiazide-losartan 25 mg-100 mg oral tablet TAKE 1 TABLET BY MOUTH EVERY DAY Start Date: 12/05/21 Status: Ordered HYDROmorphone 2 mg oral tablet See Instructions, PRN Pain , Severe, Take 1-2 tablets By Mouth Every 4 hours, # 84 tablet, 0 Refills, Acute 12/20/21 8:01:00 EDT, 12/13/21 8:00:00 EDT, Tablet, [facility], Partial fill upon patient request if the prescription is for a s... Start Date: 12/13/21 Stop Date: 12/20/21 Status: Ordered MiraLax Powder 1 pack/packet = [...] opioid drug. Start Date: 12/13/21 Status: Ordered traMADol 50 mg oral tablet See Instructions, PRN Pain , Mild, 1-2 tablet By Mouth Every 6 hours not to exceed 400 mg/day, # 56tablet, 0 Refills, Acute 12/20/21 8:00:00 EDT, 12/13/21 7:59:00 EDT, Tablet, [facility], Partial fill upon patient request if the presc... Start Date: 12/13/21 Stop Date: 12/20/21 Status: Ordered Problem List Condition Effective Dates Status Health Status Inform ant ASCUS (atypical squamous eliud ls of undetermined significance) on Pap smear(Confirmed) Active Anxiety(Confirmed) Active Cholelithiasis(Confirmed) Active Depression(Confirmed) Active Dyslipidemia(Confirmed) Active Rectocele(Confirmed) Active Hypertension(Confirmed) Active Urinary incontinence, mixed(Confirmed) Active Obese class II(Confirmed) Active Panic disorder(Confirmed) Active Sleep apnea(Confirmed) Active Results Radiology Reports * Exam Date Time Procedure Performing Provider Status 12/12/21 11:09 PM Pelvis 1 or 2 Views Richi Choe; Auth (Verified) Notes: (Pelvis 1 or 2 Views) Reason For Exam: Postop Prosthesis;Postop Prosthesis RESULT: Pelvis 1 or 2 Views Pelvis 1 or 2 Views Reason: Postop Prosthesis; Clinical Question(s): Status of Hip Prosthesis; Special Instructions: RIGHT Hip - Do today at 2200 COMPARISON: Earlier the same day FINDINGS: Completion of a right total hip arthroplasty with intact hardware and normal alignment. IMPRESSION: No apparent complication. WSN: [id number] Ordering Physician: Reuben Milan Dictated By: Semaj Roberto MD Dictated Date/Time: 12/12/21 11:31 p Reviewed By: Semaj Roberto MD Signed By: Semaj Roberto MD Signed Date/Time: 12/12/21 11:31 pm Transcribed By: FREDIS Transcribed Date/Time: 12/12/21 11:29 pm * Exam Date Time Procedure Performing Provider Status 12/12/21 11:09 AM Pelvis 1 or 2 Views Cristobal Arguello; Au th (Verified) Notes: (Pelvis 1 or 2 Views) Reason For Exam: osteoarthritis, right total hip replacement RESULT: Pelvis 1 or 2 Views Pelvis 1 or 2 Views REASON: osteoarthritis, right total hip replacement / COMPARISON: None. FINDINGS: There is a right hip arthroplasty in progress. The acetabular component appears well situated. There has been proximal femoral osteotomy, and there is a rasp within the proximal femur. There is overlying soft tissue swelling and soft tissue gas compatible with the intraoperative state. Surgical instrument projects over the right hemipelvis. IMPRESSION: Right hip arthroplasty in progress. WSN: [id number] Ordering Physician: Robbie Arias Dictated By: Mele Luo MD Dictated Date/Time: 12/12/21 1:37 pm Reviewed By: Mele Luo MD Signed By: Mele Luo MD Signed Date/Time: 12/12/21 1:37 pm Transcribed By: FREDIS Transcribed Date/Time: 12/12/21 1:36 pm Vital Signs Most recent to oldest [Reference Range]: 1 2 3 Height 167 cm (12/14/21 7:51 AM) 167 cm (12/14/21 4:35 AM) 167 cm (12/13/21 8:12 PM) Weight 102 kg (12/12/21 8:58 AM) 102 kg (12/12/21 7:50 AM) Oxygen Saturation [94-100 %] 98 % (12/14/21 7:51 AM) 95 % (12/14/21 4:35 AM) 97 % (12/13/21 8:12 PM) Pulse Rate [55-90 bpm] 81 bpm (12/14/21 7:51 AM) 89 bpm (12/14/21 4:35 AM) 86 bpm (12/13/21 8:12 PM) Body Mass Index [18.5-24.99] 36.57 *>HHI* (12/12/21 8:58 AM) 36.57 *>HHI* (12/12/21 7:50 AM) Blood Pressure [90-138/55-84 mm Hg] 127/63mm Hg (12/14/21 7:51 AM) 133/68mm Hg (12/14/21 4:35 AM) 118/76mm Hg (12/13/21 8:12 PM) Respiratory Rate [16-30 br/min] 18 br/min (12/14/21 11:33 AM) 18 br/min (12/14/21 7:51 AM) 18 br/min (12/14/21 7:14 AM) Temperature [96.8-100.4 DegF] 97.9 DegF (5/22/22 7:51 AM) 98.4 DegF (12/14/21 4:35 AM) 98.7 DegF (12/13/21 8:12 PM) Liters per Minute 6 L/min (12/12/21 11:45 AM) Mode of Delivery (Oxygen) Room air (12/14/21 7:51 AM) Room air (12/14/21 4:35 AM) Room air (12/13/21 8:12 PM) Blood pressure sites Arm, left (12/14/21 7:51 AM) Arm, right (12/14/21 4:35 AM) Arm, right (12/13/21 8:12 PM) Temperature Route Oral (12/14/21 7:51 AM) Oral (12/14/21 4:35 AM) Oral (12/13/21 8:12 PM) Dry Weight 102 kg (12/12/21 8:58 AM) 102 kg (12/12/21 7:50 AM) Dry Weight Obtained Via Standing scale (12/12/21 8:58 AM) Social History Social History Type Response Smoking Status Never smoker entered on: 10/10/15 Sex Female
--- OUTSIDE RECORDS SUMMARY | 2024-04-11 18:49 | XMS_ITS | Continuity of Care Document ---
Author Organization [facility] Address [address] [place] [address]- Care Team Providers Care Manager Of Case Management Name Role Phone Evie Link MD Primary Care Physician Encounter [facility] [place] Date(s): 05/19/22 - 06/18/22 [facility] [address] [place] [address]- [place] Allergies, Adverse Reactions, Alerts Substance Reaction Severity [...] Team Personnel Name: Evie Link MD Position: [facility] Outreach Member Role: PCP Address: Address: [address] [place] [address]- Name: Martha Rangel RN Position: [facility] RN Member Role: Primary Care Nurse Care Team Related Persons Name: NESTOR PANDYA Address: home [address] [address] Name: ALF PANDYA Address: home [address] [place] [address]
--- OUTSIDE RECORDS SUMMARY | 2024-04-11 18:49 | XMS_ITS | Continuity of Care Document ---
Author Organization [facility] ter Address [address] [place] [address]- Care Team Providers Care Pilot Boat Deckhand Name Role Phone Evie Link MD Primary Care Physician [place] [facility] [place] Date(s): 07/22/21 - 08/31/[address] [address]- Attending Physician: Evie Link MD Admitting Physician: [...] Gm, 0 Refills, Maintenance, 04/03/20 10:26:00 EDT, [id number], 166,cm, 02/21/20 10:50:00 EDT, Height, 102.1, kg, [...] 2 each, 0 Refills, Maintenance, 05/20/21 11:29:00EDT, [id number], Partial fill upon patient request if the [...]
--- OUTSIDE RECORDS SUMMARY | 2024-04-11 18:49 | XMS_ITS | Continuity of Care Document ---
Author Organization [facility] Address [address] [place] [address]- Care Team Providers Care Blood Typer Name Role Phone Evie Link MD Primary Care Physician [phone] Encounter [facility] Date(s): 04/01/23 - 05/01/23 [facility] [address] [place] [address]- [place] Allergies, Adverse Reactions, Alerts Substance Reaction [...] Team Personnel Name: Evie Link MD Position: [facility] Outreach Member Role: PCP Address: Address: [address] [place] [address] [address] Evie MercedesyoGABRIELA [place] [id number] Name: Martha Rangel RN Position: [facility] RN Member Role: Primary Care Nurse Care Team Related Persons Name: NESTOR PANDYA Address: [address] [address] Name: ALF PANDYA Address: [address] [place] [address]
--- OUTSIDE RECORDS SUMMARY | 2024-04-11 18:49 | XMS_ITS | Continuity of Care Document ---
Author Organization [facility] Address [address], [address] [place] [address]- Care Team Providers Care Head Screen Worker Name Role Phone Nikolay THOMPSON, Evie Denis Primary Care Physician [id number]s): 07/10/20 - 08/09/20 [facility] [address], [address]th [place] [address]- Attending Physician: Max Guevara Admitting Physician: Max Guevara Referring Physician: Max Guevara Referring Physician: Yoli Aden Allergies, Adverse Reactions, Alerts Substance Reaction Severity Status Imitrex Active Bee Stings horase voice, diff breathing. Active Latex Active Medications albuterol 0.083% inhalation solution 3 mL = 2.5 mg, Neb, Every 6 hours, 0 Refills, Maintenance, 02/21/20 11:18:00 EDT Start Date: 02/21/20 Status: Ordered Bathtub chair Bathtub chair, See [...] Gm, 0 Refills, Maintenance, 04/03/20 10:26:00 EDT, [facility][id number], 166,cm, 02/21/20 10:50:00 EDT, Height, 102.1, kg, [...] 04/15/15 9:36:40 Start Date: 04/15/15 Status: Ordered SEROquel 50 mg oral tablet [...]
--- OUTSIDE RECORDS SUMMARY | 2024-04-11 18:49 | XMS_ITS | Continuity of Care Document ---
Author Organization [facility] ter Address [address] [place] [address]- Care Team Providers Care Certified Massage Therapist Name Role Phone Evie Link MD Primary Care Physician En[place] [facility] [place] Date(s): 12/12/21 - 01/11/[address] [address]- Attending Physician: Not on Staff, Attending MD Admitting Physician: Not on Staff, Admitting MD Referring Physician: Not on Staff, Referring MD Allergies, Adverse Reactions, Alerts Substance Reaction [...]
--- OUTSIDE RECORDS SUMMARY | 2024-04-11 18:49 | XMS_ITS | Continuity of Care Document ---
Author Organization [facility] Address [address] [place] [address]- Care Team Providers Care Lead Radiation Therapist Name Role Phone Nikolay THOMPSON, Evie Denis Primary Care Physician Encounter [facility] [place] Date(s): 04/26/23 - 05/26/23 [facility] [address] [place] [address]- [place] Allergies, Adverse Reactions, Alerts Substance Reaction [...] Team Personnel Name: Evie Link MD Position: [facility] Outreach Member Role: PCP Address: Address: [address] [place] [address] [address] [place] [address] Name: Martha Rangel RN Position: [facility] RN Member Role: Primary Care Nurse Care Team Related Persons Name: NESTOR PANDYA Address: [address] [address] Name: ALF PANDYA Address: home [address] [place] [address]
--- OUTSIDE RECORDS SUMMARY | 2024-04-11 18:49 | XMS_ITS | Continuity of Care Document ---
Author Organization [facility] Address [address], [address] [place] [address]- Care Team Providers Care Research Advisor Name Role Phone Evie Link MD Primary Care Physician [id number] Date(s): 04/11/20 - 08/09/20 [facility] [address], [address]th [place] [address]- Attending Physician: Emerita Robin MD Admitting Physician: Emerita Robin MD Referring Physician: Evie [...] Gm, 0 Refills, Maintenance, 04/03/20 10:26:00 EDT, [facility] #[id number], 166,cm, 02/21/20 10:50:00 EDT, Height, 102.1, kg, [...]
--- OUTSIDE RECORDS SUMMARY | 2024-04-11 18:49 | XMS_ITS | Continuity of Care Document ---
Author Organization [facility] ter Address [address] [place] [address]- Care Team Providers Care Tax Clerk Name Role Phone Nikolay THOMPSON, Evie Denis Primary Care Physician [phone] [place] [facility] [place] Date(s): 08/03/19 - 08/10/[address] [address]- [facility] Attending Physician: Delisa Posadas MD Allergies, Adverse Reactions, Alerts Substance Reaction [...]
--- OUTSIDE RECORDS SUMMARY | 2024-04-11 18:49 | XMS_ITS | Continuity of Care Document ---
Author Organization [facility] Address [address] [place] [address]- Care Team Providers Care Rail Transit Operator Name Role Phone Evie Link MD Primary Care Physician Encounter [facility] [place] Date(s): 05/20/21 - 06/19/21 [facility] [address] [place] [address]- Attending Physician: Max Guevara Admitting Physician: AdmtrMax [...] Gm, 0 Refills, Maintenance, 04/03/20 10:26:00 EDT, [id number], 166,cm, 02/21/20 10:50:00 EDT, Height, 102.1, kg, [...] Tablet By Mouth, Daily at bedtime, Maintenance, 09/21/15 9:36:40 Start Date: 04/15/15 Status: Ordered Readi-Cat 2 oral suspension See Instructions, Per radiology's instructions, # 2 each, 0 Refills, Maintenance, 05/20/21 11:29:00EDT, [facility][id number], Partial fill upon patient request if the [...]
[2024-04-11] MEDS: Anastrozole 1 MG TABLET PO (20:04)
[2024-04-11 21:34] VITALS: BP 165/93; PULSE 106; RESP 17; TEMP 36.7; O2SAT 94
== END 2024-04-11 21:34 | disposition home or self-care (01) ==
PROVIDERS: Emergency Provider Emergency Medicine; PCP Internal Medicine
DX: S62.102A Fracture of unspecified carpal bone, left wrist, initial encounter for closed fracture (principal); S60.812A Abrasion of left wrist, initial encounter; M25.532 Pain in left wrist; R51.9 Headache, unspecified; M54.2 Cervicalgia; M25.562 Pain in left knee; W01.0XXA Fall on same level from slipping, tripping and stumbling without subsequent striking against object, initial encounter; Y93.89 Activity, other specified; Y92.89 Other specified places as the place of occurrence of the external cause; Y99.8 Other external cause status; Z79.899 Other long term (current) drug therapy
CPT/HCPCS: 25605; 29125; 70450; 72125; 73100; 73110; 73562; 73700; 99284; J0665

== ENCOUNTER 2024-04-17 11:23 | Outpatient (REF) | payer OTHER, SELFPAY ==
--- NOTE | ~2024-04-17 | XR_ITS ---
EXAMINATION: XR WRIST, LEFT CLINICAL INFORMATION: Pain. COMPARISON: Prior radiographs dated 04/11/2024. TECHNIQUE: PA, lateral, and oblique views of the left wrist. FINDINGS: There is mild bony demineralization. A comminuted fracture with intra-articular extension is again seen of the distal radius involving the styloid process. This shows stable moderate displacement, with depression of the fracture fragment by approximately 2 mm. As well, a displaced ulnar styloid fracture is seen. No significant new callus formation is seen. There is an ulnar minus variance. The proximal and distal carpal rows are intact. There is generalized soft tissue swelling, without gas or foreign body. XR/XR wrist LT w scaphoid IMPRESSION: There is stable alignment of displaced distal left radial and ulnar fracture fragments. No significant new callus formation is seen. Electronically signed by: Chino Kauffman MD 04/17/2024 09:07 PM EDT
== END 2024-04-17 11:24 | disposition home or self-care (01) ==
LOC: HO.HOSX 11:23
PROVIDERS: PCP Internal Medicine
DX: M25.532 Pain in left wrist (principal); S52.502A Unspecified fracture of the lower end of left radius, initial encounter for closed fracture; S52.612A Displaced fracture of left ulna styloid process, initial encounter for closed fracture
CPT/HCPCS: 25600; 73110; 99202

== ENCOUNTER 2024-04-17 12:31 | Outpatient (AMB) | payer OTHER, SELFPAY ==
--- NOTE | 2024-04-17 12:35 | MHC.OFFVIS ---
Vital Signs 04/17/24 12:36 Height 5 ft 6 in Weight 225 lb BMI 36.3 Handedness Right Intake Visit Reasons: ED f/u LT distal radius fracture Intake Note: Maribell is a 63 year old right hand dominant female who presents today as a new patient for an ED follow up for her left wrist fracture s/p fall DOI: 04/11/2024. Patient report she had a fall due to the side walk having an unexpected curve. She fell forward landing on her left knee. She was going to hit face first with her glasses but used her left wrist to block her face. Patient reports she has been having burning and stabbing pain in the left wrist. Her ROM is very limited. Patient has bruising and reports pain on the dorsal aspect of her hand. She has swelling in all her digits of the left hand and at her MCP joints. Allergies sumatriptan [From Imitrex] Allergy (Severe, Verified 04/17/24 12:38) Palpitations bee pollen [bee stings] Allergy (Verified 04/11/24 15:04) Anaphylaxis latex Allergy (Verified 04/11/24 15:04) Rash HPI HPI ED f/u LT distal radius fracture: Details: Patient is a 63-year-old female who presents for ED follow-up for left distal radius fracture, date of injury 04/11/2024. That date, the patient reports that she was coming to a doctor's appointment, when she tripped and fell over the curb onto an outstretched left hand. Patient reports that at that time, she began to experience significant pain in her left wrist, and presented to the emergency department. In the ED, x-rays were taken, revealing displaced, comminuted, intra-articular fracture of the left distal radius, as well as a displaced fracture of the distal ulnar styloid. Today, the patient reports that she is still in significant pain, and states that she has had tremendous difficulty with activities of daily living, such as getting herself dressed, doing her hair and cleaning around her house, due to only having 1 hand. Patient denies any numbness or tingling in the left hand. No other acute complaints or concerns at this time. [facility] Social History (Updated 04/17/24 @ 12:39 by ZE Gonzalez) Alcohol intake: never Patient Tobacco Use Status: Never used Tobacco Current occupational status: unemployed Review of Systems Const All systems reviewed & are unremarkable except as noted in HPI and below Physical Exam Vital Signs: BMI result Body Mass Index 36.3 Extrem Other: Patient is alert, oriented, and in no acute distress. Neuro: Normal sensation of the tips of all digits of the left hand at this time Vascular: Cap refill brisk Pain: Significant pain to very gentle palpation about the entire left wrist ROM: Patient is able to get close to making a closed fist with the left hand Skin: No lacerations or abrasions. General: There is significant edema and ecchymosis circumferentially about the patient's left wrist No erythema or evidence of infection noted Psych: Appears grossly normal Affect normal Attitude cooperative Office Procedures Casting/Splints 10865-[id number] Splint Application Procedure code (CPT) selection complete Results Reviewed Results Reviewed: X-rays obtained in the office today and independently reviewed by me, Suleiman Causey PA-C, demonstrate displaced, intra-articular, comminuted fracture of the left distal radius, as well as displaced fracture of the distal ulnar styloid. Assessment & Plan Assessment & Plan (1) Fracture of left distal radius: Code(s): S52.502A - Unspecified fracture of the lower end of left radius, initial encounter for closed fracture Category: Medical (2) Displaced fracture of left ulna styloid process, initial encounter for closed fracture: Code(s): S52.612A - Displaced fracture of left ulna styloid process, initial encounter for closed fracture Category: Medical Plan 1. Left distal radius fracture, displaced, comminuted, intra-articular Date of injury 04/11/2024 I educated the patient about the condition. I discussed both operative and nonoperative treatment options. The patient would like to proceed with surgery. The risks and benefits of operative treatment were discussed with the patient and the patient wishes to proceed with surgery. These risks include, but are not limited to, risk of damage to blood vessels, nerves, tendons, infection, recurrence, incomplete relief of preoperative symptoms, persistent pain, possible need for further surgery, and the risks associated with regional blocks and/or anesthesia. Plan is to take the patient to the operating room at some point in the next few weeks for the following procedures: 1. ORIF of left distal radius All of the preoperative paperwork including the consent was discussed today. All of the patient's questions were answered in the clinic today. The patient understands that they will be in contact with our surgical dressing maker to discuss scheduling their procedure. Patient denies diabetes, blood thinners, asthma, heart issues, lung issues, kidney issues, or current smoking. The patient does report that she does have a current diagnosis of stage I breast cancer, for which she is taking anastrozole CT scan of the left wrist also order to better assess the position of fracture fragments in the left wrist prior to surgery. Orders: Orders XR wrist LT w scaphoid 04/17/24 M25.532 - Pain in left wrist CT wrist LT wo IV con 04/17/24 S52.502A - Unspecified fracture of the lower end of left radius, initial encounter for closed fracture Coding Level of Care Code New Pt Level 4 (86473) Diagnoses Fracture of left distal radius S52.502A Displaced fracture of left ulna styloid process, initial encounter for closed fracture S52.612A CPT Codes Splint - CPT: 04703-[id number] Splint Application ([id number])
[2024-04-17 12:36] VITALS: BMI 36.3
== END 2024-04-17 14:11 | disposition home or self-care (01) ==
PROVIDERS: PCP Internal Medicine
DX: S52.572A Other intraarticular fracture of lower end of left radius, initial encounter for closed fracture (principal); S52.612A Displaced fracture of left ulna styloid process, initial encounter for closed fracture
CPT/HCPCS: 25600; 99204

== ENCOUNTER 2024-04-17 14:21 | Outpatient (REF) | payer OTHER, SELFPAY ==
--- NOTE | ~2024-04-17 | CT_ITS ---
EXAMINATION: CT wrist LT wo IV con INDICATION: S52.502A - Unspecified fracture of the lower end of left radius, initial... COMPARISON: Radiographs dated 04/17/2024 TECHNIQUE: Multidetector volumetric imaging was obtained through the left wrist without contrast. Multiplanar reformatted images in coronal and sagittal orientations were submitted. This CT examination was performed using dose optimization techniques as appropriate, variously including the following: *Automated exposure control *Adjustment of mA and/or kV according to patient size (this includes techniques or standardized protocols for targeted exams where dose is matched to indication/reason for exam; i.e. extremities or head) *Use of iterative reconstruction technique DLP: 131 mGy-cm FINDINGS: There is a comminuted intra-articular fracture of the distal radius with a dominant radial styloid component. The 5 mm with slight associated depression and loss of the normal radial tilt. Articular cortical offset measures up to 2 mm. Multiple small osseous fragments are present in the dorsal aspect of the joint capsule. There is a mildly comminuted fractures through the base of the ulnar styloid with distal displacement by 7 mm. Distal radioulnar joint articular surfaces remain intact. Dwwb-et-yhsksliv osteoarthritis of the first CMC joint with more mild osteoarthritis of the triscaphe the joint. Subcutaneous fat stranding is noted at the dorsal aspect of the wrist. Radiocarpal joint effusion. A few punctate ossific fragments appear superficial to the dorsal joint capsule, raising the possibility of capsular disruption. No subcutaneous gas. There foci of calcification along the palmar margin of the thumb MCP joint measuring up to 5 mm in diameter, most consistent with calcific tendinitis/capsulitis. CT/CT wrist LT wo IV con IMPRESSION: 1. Comminuted,mildly displaced intra-articular fracture of the distal radius centered at the radial styloid 2. Mildly comminuted fracture avulsion of the ulnar styloid. 3. 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 4. Calcific tendinitis/capsulitis at the thumb MCP joint. Electronically signed by: Fabián Norris MD 04/17/2024 04:35 PM EDT
== END 2024-04-17 14:22 | disposition home or self-care (01) ==
LOC: HO.CT 14:21
PROVIDERS: PCP Internal Medicine
DX: S52.502A Unspecified fracture of the lower end of left radius, initial encounter for closed fracture (principal)
CPT/HCPCS: 73200

== ENCOUNTER 2024-04-20 07:30 | Day surgery (SDC) | payer OTHER, SELFPAY ==
--- NOTE | 2024-04-18 15:00 | HO.ANESPROP2 ---
Documented by User: Jeanine Caputo NP 04/18/24 15:04 HPI - Anesthesia Eval Consult details Narrative: 63yo F for Left Radius Distal Fracture ORIF No medical hx provided by surgical office. Likely htn/hld/hx breast cancer per external rx ? previously on eliquis PMFSH Active Problems Active Problems: All Active Problems Fracture of left distal radius (Acute) Social History Social History Alcohol intake: never Patient Tobacco Use Status: Never used Tobacco Advance Directives: No Advance Directives Information Provided: Yes Current occupational status: unemployed Meds Allergies Allergy/AdvReac Type Severity Reaction Status Date / Time sumatriptan [From Imitrex] Allergy Severe Palpitation Verified 04/17/24 12:38 s bee pollen [bee stings] Allergy Anaphylaxis Verified 04/11/24 15:04 latex Allergy Rash Verified 04/11/24 15:04 Assessment and Plan Assessment Anesthesia Assessment: Chart Reviewed Documented by User: Shea Samayoa MD 04/20/24 07:50 PMF Family History Family history of problems with anesthesia: No Surgical History History of Problems with Anesthesia: Yes Social History Social History Alcohol intake: never Patient Tobacco Use Status: Never used Tobacco Advance Directives: No Advance Directives Information Provided: Yes Current occupational status: unemployed Meds Allergies Allergy/AdvReac Type Severity Reaction Status Date / Time sumatriptan [From Imitrex] Allergy Severe Palpitation Verified 04/17/24 12:38 s bee pollen [bee stings] Allergy Anaphylaxis Verified 04/11/24 15:04 latex Allergy Rash Verified 04/11/24 15:04 Exam Airway Mallampati Class: II TM Dist: >3cm Neck ROM: Full Heart: rrr Lungs: cta Assessment and Plan Assessment Anesthesia Assessment: Anesthesia Plan Discussed Final Anesthetic Review Family History of Problems with Anesthesia: No History of Problems with Anesthesia: Yes NPO: Yes ASA Class: II Final Preanesthetic Review: No Changes in Pt Med Stat, Meds/Allgs Chart Reviewed, Consent Obtained/Reviewed and Anes Risks/Benef Reviewed Patient Risk: Intermediate Procedure Risk: Intermediate Anesthetic Plan Anesthetic Plan: GA and Regional Block Disposition: Standard PACU
[2024-04-20] VITALS (14 sets, daily range): BP systolic 151–191; BP diastolic 83–104; PULSE 87–97; RESP 16–18; TEMP 36.1–36.7; O2SAT 95–99; BMI 36.3
--- NOTE | 2024-04-20 | ECG_ITS ---
Test Reason : Stat PACU Blood Pressure : / mmHG Vent. Rate : 082 BPM Atrial Rate : 082 BPM P-R Int : 170 ms QRS Dur : 096 ms QT Int : 388 ms P-R-T Axes : 044 025 036 degrees QTc Int : 453 ms Normal sinus rhythm Normal ECG No previous ECGs available Referred By: Shea Samayoa Electronically Signed By:SHMUEL MENA
--- NOTE | 2024-04-20 08:04 | W.PM.OPN ---
Operative Note Operative Note Date of Service: 04/20/24 Narrative: Operative Note Narrative: Preop diagnosis: 1. Left Distal radius fracture, comminuted and intra-articular Postop diagnosis: Same Procedure: 1. Distal radius fracture open reduction internal fixation, 3+ part comminuted intra-articular Surgeon: Sue Alvarez MD Industrial Service Technician: Suleiman FONTAINE Anesthesia: General anesthesia plus regional block Findings: The ulnar column of the distal radius was intact from the shaft to the articular surface. She had a large and significantly comminuted fracture involving the middle column and a large radial styloid fragment with significant volar and radial displacement. Implants: A 3 hole standard Accu Med volar locking plate, with 6 X 2.3 mm locking pegs/screws, and 3 3.5 mm cortical screws Tourniquet time: 63 minutes EBL: 5.0 ml Specimen: None Drains: None Complications: None Disposition: Brought to the recovery room in stable condition Plan: Follow-up in 10-14 days for wound check, suture removal and postop radiographs The patient will be placed in either a short-arm cast . Encouraged no lifting of anything heavier than a cell phone. Please encourage active and passive range of motion of the digits. Follow-up at 4-5 weeks postop for repeat radiographs. Indications: The patient is a 63 year old woman with a highly comminuted left distal radius fracture . The risks and benefits of operative treatment, including but not limited to risk of damage to blood vessels, nerves, tendons, infection, recurrence, persistent pain or numbness, incomplete resolution of preoperative symptoms, or need for further surgery were discussed with the patient and they wished to proceed with surgery. Procedure: Once consent was obtained patient was brought back to the operating suite and placed in the operating table in a supine position. A regional block was performed by the anesthesia team. Perioperative antibiotics and anesthesia was administered by the anesthesia team. A tourniquet was applied to the proximal aspect of the left upper extremity and the limb was prepped and draped in a standard surgical fashion. The limb was elevated exsanguinated with Esmarch bandage and the tourniquet inflated to 250 mm of mercury for a total tourniquet time of 63 minutes. The FluoroScan was used throughout the case to assess our reduction, and facilitate implant placement. A gentle closed reduction was 1st performed on the patient's left distal radius fracture. Was assessed radiographically before proceeding with the reduction internal fixation. I then made an 8 cm longitudinal incision over the distal aspect of the flexor carpi radialis tendon. The incision was made through the skin to the subcutaneous tissue using a 15. Blade. Then carefully dissected down to flexor carpi radialis tendon she tenotomy scissors. The FCR tendon sheath was then incised longitudinally using tenotomy scissors under direct visualization. The FCR tendon was then retracted ulnarly. I then made a longitudinal incision in the volar forearm fascia through the floor of FCR tendon sheath using tenotomy scissors under direct visualization. I identified the interval between the radial artery and the flexor tendons. This interval was developed further with my index finger, releasing some of the muscular fibers of the flexor pollicis longus. A dull weatlander retractor was then placed. I then created an ulnarly based flap of the pronator quadratus by releasing the radial and distal edges using a 15. Blade. A Fischer elevator was used to elevate the pronator quadratus from the volar surface of the distal radius. This then revealed to us our distal radius fracture. An open reduction was then performed on our distal radius fracture. The ulnar column of the distal radius was intact from the shaft to the articular surface. Comminuted fracture involve the middle and radial columns of the distal radius with significant comminution and volar and radial displacement. After reducing the middle and radial columns to the ulnar column of the distal radius I then placed a standard 3 hole Accu Med volar locking plate on the volar surface of the distal radius. I placed 2 K-wires through the distal aspect of the plate and into the distal radius. This was assessed using fluoroscopic images. I was satisfied with our reduction and the placement of our plate. I then placed a 3 .5 cortical screw through the oval hole in the shaft of the radius after 1st drilling bicortically with a 2.8 mm drill bit. The plate acted as a buttress and improved our reduction. I then placed 2 additional 3.5 mm cortical screws in a similar manner. I then placed 6 X 2.3 mm locking screws/pegs in the distal aspect of the plate and distal radius by 1st drilling bicortically with a 2.0 mm drill bit, measuring with a depth gauge, and placing the appropriate length locking screws/pegs. The placement of our plate and screws was then assessed again using fluoroscopic images. Final radiographs were then obtained. The DRUJ was assessed and found to be stable on exam. I was satisfied with our reduction and placement of all implants. At this point the wound was irrigated with normal saline. The pronator quadratus was reduced back over the volar locking plate using some 3-0 Vicryl suture material. The tourniquet was then deflated and hemostasis was obtained with a brief period of local pressure and bipolar monopolar electrocautery. The subcutaneous layer was then reapproximated using some 4-0 Vicryl suture, and the skin edges were reapproximated using some 5 0 Prolene suture. The wound was then infiltrated with some 1% lidocaine with epinephrine postop pain control. A sterile dressing and a short dorsal splint allowing for active flexion and extension of the digits was applied. The patient appears to have tolerated the procedure well and with no complications. All digits were well vascularized conclusion of the case.
[2024-04-20] MEDS: Lactated Ringers 1,000 ML 100 ML IVCONT (08:13)
--- NOTE | 2024-04-20 09:15 | MHC.SHP ---
Pre-Procedural Eval Section A - 24 Hr Update-Section A only Date of Service: 04/20/24 The patient is an INPATIENT: No Changes since office visit: No Cold of Flu in the past 2 weeks, No New Medical Problems, No Changes in Medication and No Patient answered all questions The patient has been examined within 24 hours of the surgical procedure. The History & Physical has been completed within 30 days and I have reviewed it.: Yes Section B - Complete if H&P > 30 days Chief Complaint: Unspecified fracture of the lower end of L radius Allergies: Allergies Allergy/AdvReac Type Severity Reaction Status Date / Time sumatriptan [From Imitrex] Allergy Severe Palpitation Verified 04/17/24 12:38 s bee pollen [bee stings] Allergy Anaphylaxis Verified 04/11/24 15:04 latex Allergy Rash Verified 04/11/24 15:04 Exam Exam Comment: He has a significantly comminuted and displaced left distal radius fracture Sensation intact to the tips of all digits. Plan I have reviewed the history and physical and performed a pertinent physical examination on my patient. No changes have occurred unless specified. Patient was seen in preop hold today The risks and benefits of operative treatment were discussed with the patient and the patient wishes to proceed with surgery. These risks include, but are not limited to risk of damage to blood vessels, nerves, tendons, infection, recurrence, incomplete relief of preoperative symptoms, persistent pain, possible need for further surgery and the risks associated with regional blocks and anesthesia. The plan is to take the patient to the operating room today for the following procedures: 1. Left distal radius fracture open reduction internal fixation 2. [ ] All of the preoperative paperwork including the consent was filled out today. All the patient's questions were answered. Time Spent With Patient Time: Total time managing care of this patient today ____ minutes.
[2024-04-20] MEDS: ondansetron HCL 4 MG/2 ML VIAL IVPUSH (12:35)
[2024-04-20] MEDS: fentaNYL citrate/PF 100 MCG/2 ML VIAL 25 MCG IVPUSH (12:40)
[2024-04-20] MEDS: Haloperidol Lactate 5 MG/ML VIAL 1 MG IVPUSH (13:31)
[2024-04-20] MEDS: oxyCODONE HCl Immed Release 5 MG TABLET PO (13:50)
== END 2024-04-20 14:25 | disposition home or self-care (01) ==
PROVIDERS: PCP Internal Medicine; Visit Provider Orthopaedic Surgery
PROC: (CPT 25609; principal; 2024-04-20 09:00)
DX: S52.572A Other intraarticular fracture of lower end of left radius, initial encounter for closed fracture (principal); W01.0XXA Fall on same level from slipping, tripping and stumbling without subsequent striking against object, initial encounter; Y93.01 Activity, walking, marching and hiking; Y92.480 Sidewalk as the place of occurrence of the external cause; Y99.9 Unspecified external cause status; M25.532 Pain in left wrist; M25.442 Effusion, left hand; R20.8 Other disturbances of skin sensation; Z88.8 Allergy status to other drugs, medicaments and biological substances; Z91.040 Latex allergy status; Z79.890 Hormone replacement therapy; Z56.0 Unemployment, unspecified
CPT/HCPCS: 25609; 93005; C1713; J0131; J0171; J0665; J0690; J1100; J1630; J2250; J2405; J2704; J3010

== ENCOUNTER → 2024-04-20 07:30 | Outpatient (BNV) | payer OTHER, SELFPAY | PROVIDERS: PCP Internal Medicine; Visit Provider Orthopaedic Surgery | DX: S52.572A Other intraarticular fracture of lower end of left radius, initial encounter for closed fracture (principal) | CPT/HCPCS: 25609 ==

== ENCOUNTER 2024-05-02 08:32 | Outpatient (REF) | payer OTHER, SELFPAY | END 2024-05-02 08:33 | disposition home or self-care (01) | LOC: HO.HOSX 08:32 | DX: M25.532 Pain in left wrist (principal); S52.502D Unspecified fracture of the lower end of left radius, subsequent encounter for closed fracture with routine healing; S52.612D Displaced fracture of left ulna styloid process, subsequent encounter for closed fracture with routine healing; Z98.890 Other specified postprocedural states | CPT/HCPCS: 73110; 99212 ==

== ENCOUNTER 2024-05-02 14:09 | Outpatient (AMB) | payer OTHER, SELFPAY ==
--- NOTE | 2024-05-02 14:20 | A.OFFVIS_ITS ---
Intake Visit Reasons: PO LT distal radius ORIF 04/20/24 AR Intake Note: Yobani is a 28 year old right hand dominant female who presents today for a post operative visit S/P Right small finger proximal phalanx base fracture CRPP w/ Dr Alvarez DOS: 04/20/2024. Pt states she is in a lot of pain and she states she has a lot of swelling in her left hand. Allergies sumatriptan [From Imitrex] Allergy (Severe, Verified 05/02/24 14:20) Palpitations bee pollen [bee stings] Allergy (Verified 05/02/24 14:20) Anaphylaxis latex Allergy (Verified 05/02/24 14:20) Rash HPI HPI PO LT distal radius ORIF 04/20/24 AR: Details: Patient is a 63-year-old female who presents for evaluation of left distal radius fracture status post ORIF, DOS 04/20/2024. Today, the patient reports that she is still experiencing significant pain in her left wrist, and then she is also barely able to move any of the digits of her left hand. The patient reports that she has had significant difficulty with performing her activities of daily living, and states that she has been unable to get to the bathroom by herself and requires her partner's help for pulling her pants up and down. The patient states that she feels her hands were very swollen and ?purple? while in splint, but this is since resolved. Patient denies any numbness or tingling in left hand. No other acute complaints or concerns at this time. [facility] Surgical History (Updated 04/20/24 @ 08:11 by Sandra Anderson RN) Status post-operative repair of type I or II open fracture of right hip H/O right wrist surgery Social History Alcohol intake: never Patient Tobacco Use Status: Never used Tobacco Current occupational status: unemployed Review of Systems Const All systems reviewed & are unremarkable except as noted in HPI and below Physical Exam Extrem Other: Patient is alert, oriented, and in no acute distress. Neuro: Normal sensation of the tips of all digits of the left hand at this time Vascular: Cap refill brisk Pain: Patient reports very significant discomfort with range of motion of the fingers of the left hand in the joints and dorsal aspect of the left hand Minimal tenderness to palpation about the left wrist, mostly centered around the ulnar styloid ROM: With very significant encouragement and help, the patient is able to get close to making a closed fist and extending the digits of the left hand fully Skin: Well-approximated incision site on the volar aspect of the left wrist noted No evidence of dehiscence or infection General: No ecchymosis, erythema, or evidence of infection. Psych: Appears grossly normal Affect normal Attitude cooperative Results Reviewed Results Reviewed: X-rays obtained in the office today and independently reviewed by me, Suleiman Causey PA-C, demonstrate well approximated fracture of the left distal radius in satisfactory clinical alignment with all orthopedic hardware in place. There is also a displaced fracture of the ulnar styloid, largely unchanged from previous x-rays. Assessment & Plan Assessment & Plan (1) Fracture of left distal radius: Code(s): S52.502A - Unspecified fracture of the lower end of left radius, initial encounter for closed fracture Category: Medical (2) Displaced fracture of left ulna styloid process, initial encounter for closed fracture: Code(s): S52.612A - Displaced fracture of left ulna styloid process, initial encounter for closed fracture Category: Medical Plan 1. Left distal radius fracture status post open reduction internal fixation DOS 04/20/2024 2. Displaced fracture of the left ulnar styloid Patient appears to be recovering moderately well postoperatively Patient is educated about the typical recovery course Patient is educated that she needs to continue with nlkti-un-jrsdej exercises of her left hand in order to prevent severe stiffness Patient was placed in a short-arm cast today with fingers free so she can work on range of motion Patient is educated on proper cast care and precautions Occupational hand therapy is also ordered to help with range of motion of the left hand Patient will follow-up in 1 week for wlyai-vh-upyubg check, sooner with any acute concerns Orders: Orders XR wrist LT w scaphoid Today M25.532 - Pain in left wrist OT Evaluation and Treatment Today S52.502A - Unspecified fracture of the lower end of left radius, initial encounter for closed fracture, S52.612A - Displaced fracture of left ulna styloid process, initial encounter for closed fracture Medications: New [3 in 1 commode] height 66 inches, weight 250 lbs 1 ea 0RF S52.502A - Unspecified fracture of the lower end of left radius, initial encounter for closed fracture, S52.612A - Displaced fracture of left ulna styloid process, initial encounter for closed fracture [3 in 1 commode] M16.11 Right hip OA height 72 inches, weight 334lbs 1 ea 0RF S52.502A - Unspecified fracture of the lower end of left radius, initial encounter for closed fracture, S52.612A - Displaced fracture of left ulna styloid process, initial encounter for closed fracture Coding Level of Care Code Global (42294) Diagnoses Fracture of left distal radius S52.502A Displaced fracture of left ulna styloid process, initial encounter for closed fracture S52.612A
== END 2024-05-02 16:11 | disposition home or self-care (01) ==
LOC: HO.HOS 14:09
PROVIDERS: PCP Internal Medicine
DX: S52.502A Unspecified fracture of the lower end of left radius, initial encounter for closed fracture (principal); S52.612A Displaced fracture of left ulna styloid process, initial encounter for closed fracture
CPT/HCPCS: 99024

== ENCOUNTER 2024-05-16 12:34 | Outpatient (REF) | payer OTHER, SELFPAY | END 2024-05-16 12:35 | disposition home or self-care (01) | LOC: HO.HOSX 12:34 | DX: M25.532 Pain in left wrist (principal); S52.612D Displaced fracture of left ulna styloid process, subsequent encounter for closed fracture with routine healing; S52.502D Unspecified fracture of the lower end of left radius, subsequent encounter for closed fracture with routine healing; Z98.890 Other specified postprocedural states | CPT/HCPCS: 73110; 99212 ==

== ENCOUNTER 2024-05-16 13:12 | Outpatient (AMB) | payer OTHER, SELFPAY ==
--- NOTE | 2024-05-16 13:47 | A.OFFVIS_ITS ---
Intake Visit Reasons: PO LT distal radius ORIF 04/20/24 AR-ROM check Intake Note: Maribell is a 63 year old female who presents to the office today for a PO LT distal radius ORIF 04/20/24 ROM check. Pt states she had a stroke and is now unable to really use the left side of her body. Pt states she is able to move her fingertips but states she is still having pain. Allergies sumatriptan [From Imitrex] Allergy (Severe, Verified 05/16/24 14:02) Palpitations bee pollen [bee stings] Allergy (Verified 05/16/24 14:02) Anaphylaxis latex Allergy (Verified 05/16/24 14:02) Rash HPI HPI PO LT distal radius ORIF 04/20/24 AR-ROM check: Details: Patient is a 63 old presents for postoperative evaluation status post left distal radius ORIF, DOS 04/20/[address] Alvarez. The patient reports that she had to moves her previous postoperative evaluation due to being admitted to [facility] for a stroke. Today, the patient reports that her pain has improved, but she states that she is largely unable to work on improving her range of motion due to the remaining weakness in other symptoms after her CVA. Patient states she is currently admitted to a rehab facility where she is working on increasing the strength and mobility of her left side. Patient states that while admitted to [facility], the care team felt that there was a risk that her cast was too tight, so this was removed and she was placed in a short-arm splint. No Other acute complaints or concerns at this time [facility] Surgical History (Updated 04/20/24 @ 08:11 by Sandra Anderson RN) Status post-operative repair of type I or II open fracture of right hip H/O right wrist surgery Social History Alcohol intake: never Patient Tobacco Use Status: Never used Tobacco Current occupational status: unemployed Physical Exam Extrem Other: Patient is alert, oriented, and in no acute distress. Neuro: Normal sensation of the tips of all digits of the left hand at this time Vascular: Cap refill brisk Pain: Patient reports minimal tenderness to palpation about the left distal radius ROM: Patient is not able to make closed fist with the left hand at this time, but range of motion is improved from last visit Patient is able to extend all digits of the left hand fully and without difficulty Skin: Well-approximated and well-healed incision site noted on the volar aspect of the patient's left wrist No evidence of infection General: No ecchymosis, erythema, or evidence of infection. Psych: Appears grossly normal Affect normal Attitude cooperative Results Reviewed Results Reviewed: X-rays obtained in the office today and independently reviewed by me, Suleiman Causey PA-C, demonstrate well approximated fracture of the left distal radius with orthopedic hardware in place and in satisfactory clinical alignment. Assessment & Plan Assessment & Plan (1) Displaced fracture of left ulna styloid process, initial encounter for closed fracture: Code(s): S52.612A - Displaced fracture of left ulna styloid process, initial encounter for closed fracture Category: Medical (2) Fracture of left distal radius: Code(s): S52.502A - Unspecified fracture of the lower end of left radius, initial encounter for closed fracture Category: Medical Plan 1. Left distal radius fracture status post ORIF DOS 04/20/2024 Patient appears to be recovering moderately well postoperatively Patient is educated about the typical recovery course At this time, patient is informed that she will be removed from casting or splints and be provided with a Velcro wrist splint to be worn with daytime activities or while rehabbing other areas of the body besides her wrist However, the patient was educated that whenever she is working on gentle range of motion of the hand or wrist, she can remove the Velcro wrist splint Patient was amenable to this plan Patient is educated that she should continue with a strict 2 lb weight restriction in the left hand Patient will follow-up in 3-4 weeks with repeat x-rays for reassessment, sooner any acute concerns Orders: Orders XR wrist LT w scaphoid 05/16/24 M25.532 - Pain in left wrist Coding Level of Care Code Global (52742) Diagnoses Displaced fracture of left ulna styloid process, initial encounter for closed fracture S52.612A Fracture of left distal radius S52.502A
== END 2024-05-16 14:29 | disposition home or self-care (01) ==
PROVIDERS: PCP Internal Medicine
DX: S52.612A Displaced fracture of left ulna styloid process, initial encounter for closed fracture (principal); S52.502A Unspecified fracture of the lower end of left radius, initial encounter for closed fracture
CPT/HCPCS: 99024

== ENCOUNTER 2024-06-13 10:42 | Outpatient (REF) | payer OTHER, SELFPAY | END 2024-06-13 10:43 | disposition home or self-care (01) | LOC: HO.HOSX 10:42 | DX: M25.532 Pain in left wrist (principal); S52.612A Displaced fracture of left ulna styloid process, initial encounter for closed fracture; S52.502A Unspecified fracture of the lower end of left radius, initial encounter for closed fracture; Z98.890 Other specified postprocedural states | CPT/HCPCS: 73110; 99212 ==

== ENCOUNTER 2024-06-13 13:22 | Outpatient (AMB) | payer OTHER, SELFPAY ==
--- NOTE | 2024-06-13 13:36 | A.OFFVIS_ITS ---
Vital Signs 06/13/24 13:38 Height 5 ft 6 in Weight 223 lb BMI 36.0 Handedness Right Intake Visit Reasons: PO LT distal radius ORIF 04/20/24 , w/ xray Intake Note: Maribell is a 63 year old right hand dominant female who presents today with her daughter for post operatively s/p left distal radius ORIF w/ Dr Alvarez DOS: 04/20/2024. Patient reports she has pain when attempting to make a closed fist and with any movements involving rotation of the wrist. Has been wearing velcro wrist splint except when working on ROM or sleeping. She expresses numbness and tingling in the entire left hand, woke up one day and did not have any feeling in the left hand. Accompanied by: Daughter Allergies sumatriptan [From Imitrex] Allergy (Severe, Verified 06/13/24 13:39) Palpitations bee pollen [bee stings] Allergy (Verified 06/13/24 13:39) Anaphylaxis latex Allergy (Verified 06/13/24 13:39) Rash HPI HPI PO LT distal radius ORIF 04/20/24 , w/ xray: Details: Patient is a 63-year-old female who presents for postoperative evaluation status post left distal radius ORIF, DOS 04/20/2024. Today, the patient reports that she is feeling much better, and experiences no pain left wrist this time. Gustavo larsen has been wearing the Velcro wrist splint with daytime activities. However, the patient does report that she says the head significantly limited range of motion of both the left hand and wrist, and she is working with OT, which she does feel is improving her range of motion significantly. Patient denies any numbness or tingling of the left hand. No other acute complaints or concerns at this time. [facility] Surgical History Status post-operative repair of type I or II open fracture of right hip H/O right wrist surgery Social History Alcohol intake: never Patient Tobacco Use Status: Never used Tobacco Current occupational status: unemployed Physical Exam Vital Signs: BMI result Body Mass Index 36.0 Extrem Other: Patient is alert, oriented, and in no acute distress. Neuro: Normal sensation of the tips of all digits of the left hand at this time Vascular: Cap refill brisk Pain: Patient reports no tenderness to palpation about the left distal radius ROM: Patient is not able to make closed fist with the left hand at this time, but range of motion is improved from last visit Patient is able to extend all digits of the left hand fully and without difficulty Skin: Well-approximated and well-healed incision site noted on the volar aspect of the patient's left wrist No evidence of infection General: No ecchymosis, erythema, or evidence of infection. Psych: Appears grossly normal Affect normal Attitude cooperative Results Reviewed Results Reviewed: X-rays obtained in the office today and independently reviewed by me, Suleiman Causey PA-C, demonstrate well approximated fracture of the left distal radius with orthopedic hardware in place and in satisfactory clinical alignment with evidence of interval bony healing. Assessment & Plan Assessment & Plan (1) Displaced fracture of left ulna styloid process, initial encounter for closed fracture: Code(s): S52.612A - Displaced fracture of left ulna styloid process, initial encounter for closed fracture Category: Medical (2) Fracture of left distal radius: Code(s): S52.502A - Unspecified fracture of the lower end of left radius, initial encounter for closed fracture Category: Medical Plan 1. Left distal radius fracture status post ORIF DOS 04/20/2024 Patient was to be recovering fairly well postoperatively Patient is educated about the typical recovery course At this time, patient is informed that she should absolutely continue working with occupational therapy, as it was very important that she gets better range of motion back in her left hand and wrist Patient was amenable to this plan Patient was informed that she only needs to wear the Velcro wrist splint in busy or high injury risks situations at this time, and at all the time should remove the splint to work on range of motion of the hand and wrist Patient was amenable to this plan Patient will follow-up in 4-6 weeks for egogq-nu-kmjxau check, sooner with any acute concerns Orders: Orders XR wrist LT w scaphoid Today M25.532 - Pain in left wrist Coding Level of Care Code Global (54911) Diagnoses Displaced fracture of left ulna styloid process, initial encounter for closed fracture S52.612A Fracture of left distal radius S52.502A
[2024-06-13 13:38] VITALS: BMI 36.0
== END 2024-06-13 14:03 | disposition home or self-care (01) ==
PROVIDERS: PCP Internal Medicine
DX: S52.612A Displaced fracture of left ulna styloid process, initial encounter for closed fracture (principal); S52.502A Unspecified fracture of the lower end of left radius, initial encounter for closed fracture
CPT/HCPCS: 99024

== ENCOUNTER → 2024-06-13 13:28 | Outpatient (BNV) | payer OTHER, SELFPAY | PROVIDERS: Visit Provider Radiology Diagnostic Radiology | DX: M25.532 Pain in left wrist (principal) | CPT/HCPCS: 73110 ==

== ENCOUNTER 2024-07-18 13:56 | Outpatient (AMB) | payer OTHER, SELFPAY ==
--- OUTSIDE RECORDS SUMMARY | 2024-07-18 13:58 | XMS_ITS | Continuity of Care Document ---
Author Organization [facility] Address [address] [place] [address]- Care Team Providers Care Engineering Librarian Name Role Phone Nikolay THOMPSON, Evie Denis Primary Care Physician [phone] Encounter [facility] Date(s): 06/07/24 - 07/07/24 [facility] [address] [place] [id number]- Attending Physician: Max Guevara Admitting Physician: AdmMax galarza Referring Physician: Admtr, Ar8 Encounter Type: Triage Allergies, Adverse Reactions, Alerts Substance Criticality Severity Reaction Reaction Severity Status Imitrex Active Bee Stings horase voice, d iff breathing. Active Latex Active Medications acetaminophen-oxyCODONE 325 mg-5 mg oral tablet 1, tablet, By Mouth, Every 4 hours, PRN, Refills 0, Tot. Refills 0, Maintenance, as needed for pain, 06/07/24 9:19:00 AM EST, Tablet, Partial fill upon patient request if the prescription is for a schedule II opioid drug. Start Date: 06/07/24 Status: Ordered Repeat number: 1 amLODIPine 10 mg oral tablet 10 mg, By Mouth, Daily at bedtime, # 90 tablet, Refills 3, Tot. Refills 3, Maintenance, 06/07/24 9:59:00 AM EST, Route to Pharmacy Electronically, [facility]/pharmacy #[id number], Partial fill upon patient request if the prescription is for a schedule II opioid drug., 168, cm, 06/07/24 9:19:00 EST, Height, 101.3, kg, 05/10/24 18:17:00 EDT, Dry Weight Start Date: 06/07/24 Stop Date: 10/05/24 Status: Ordered Quantity: 90.0 Unit: tablet Repeat number: 4 anastrozole 1 mg oral tablet 1 tablet = 1 mg, By Mouth, Daily, # 30 tablet, 0 Refills, Maintenance, 05/23/24 3:03:00 PM EDT, Tablet, [facility]/pharmacy #[id number], Partial fill upon patient request if the prescription is for a schedule II opioid drug., 168, cm, 05/23/24 7:34:00 EDT, Height, 101.3, kg, 05/10/24 18:17:00 EDT, Dry Weight Start Date: 05/23/24 Status: Ordered Quantity: 30.0 Unit: tablet Repeat number: 1 apixaban 5 mg oral tablet = 5 mg, By Mouth, 2 times a day, # 90 tablet, 3 Refills, Maintenance, 06/07/24 9:59:00 AM EST, Tablet, [facility]/pharmacy #[id number], Partial fill upon patient request if the prescription is for a schedule II opioid drug., 168, cm, 06/07/24 9:19:00 EST, Height, 101.3, kg, 05/10/24 18:17:00 EDT, Dry Weight Start Date: 06/07/24 Stop Date: 10/05/24 Status: Ordered Quantity: 90.0 Unit: tablet Repeat number: 4 losartan 50 mg oral tablet 100 mg, By Mouth, Daily in AM, # 180 tablet, Refills 3, Tot. Refills 3, Maintenance, 06/07/24 10:00:00 AM EST, Route to Pharmacy Electronically, [facility]/pharmacy #[id number], Partial fill upon patient request if the prescription is for a schedule II opioid drug., 168, cm, 06/07/24 9:19:00 EST, Height, 101.3,kg, 05/10/24 18:17:00 EDT, Dry Weight Start Date: 06/07/24 Stop Date: 10/05/24 Status: Ordered Quantity: 180.0 Unit: tablet Repeat number: 4 Metoprolol Tartrate 25 mg oral tablet 1 tablet, By Mouth, 2 times a day, X30 DAYS., # 180 tablet, 1 Refills, Maintenance, 06/15/24 1:20:00 PM EST, [facility] STORE [id number], 168, cm, 06/07/24 9:19:00 EST, Height, 101.3, kg, 05/10/24 18:17:00 EDT, Dry Weight Start Date: 06/15/24 Status: Ordered Quantity: 180.0 Unit: tablet Repeat number: 1 ondansetron 4 mg oral tablet, disintegrating 1 tablet = 4 mg, By Mouth, Every 8 hours, PRN as needed for nausea/vomiting, 0 Refills, Maintenance, 05/04/24 11:33:00 PM EDT, DIS Tablet, Partial fill upon patient request if the prescription is fora schedule II opioid drug. Start Date: 05/04/24 Status: Ordered Repeat number: 1 pantoprazole 40 mg oral delayed release tablet = 40 mg, By Mouth, Daily, # 30 tablet, 0 Refills, Maintenance, 05/23/24 3:05:00 PM EDT, EC Tablet, 168, cm, 05/23/24 7:34:00 EDT, Height, 101.3, kg, 05/10/24 18:17:00 EDT, Dry Weight Start Date: 05/23/24 Stop Date: 06/22/24 Status: Ordered Quantity: 30.0 Unit: tablet Repeat number: 1 rosuvastatin 20 mg oral tablet = 40 mg, By Mouth, Daily, # 90 tablet, 3 Refills, Maintenance, 06/07/24 10:00:00 AM EST, Tablet, [facility]/pharmacy #[id number], Partial fill upon patient request if the prescription is for a schedule II opioid drug., 168, cm, 06/07/24 9:19:00 EST, Height, 101.3, kg, 05/10/24 18:17:00 EDT, Dry Weight Start Date: 06/07/24 Stop Date: 10/05/24 Status: Ordered Quantity: 90.0 Unit: tablet Repeat number: 4 sucralfate 1 gm oral tablet 1 Gm, 1, tablet, By Mouth, 4 times a day, # 120 tablet, Refills 0, Tot. Refills 0, Maintenance, 05/23/24 3:06:00 PM EDT, Route to Pharmacy Electronically, [facility]/pharmacy #[id number], Partial fill upon patient request if the prescription is for a schedule II opioid drug., 168, cm, 05/23/24 7:34:00 EDT, Height, 101.3, kg, 05/10/24 18:17:00 EDT, Dry Weight Start Date: 05/23/24 Status: Ordered Quantity: 120.0 Unit: tablet Repeat number: 1 Problem List Condition Confirmation Course Effective Dates Status H ealth Status Informant ASCUS (atypical squamous cells of undetermined significance) on Pap smear Confirmed Active DVT of lower limb, acute Confirmed Active Anxiety Confirmed Active Atrial fibrillation with RVR Confirmed Active Cholelithiasis Confirmed Active Acute cerebrovascular accident (CVA) Confirmed Active Depression Confirmed Active Diplopia Confirmed Active Dizziness Confirmed Active Dyslipidemia Confirmed Active SOB (shortness of breath) Confirmed Active Rectocele Confirmed Active History of breast cancer Confirmed Active Hypertension Confirmed Active Breast cancer Confirmed Active Urinary incontinence, mixed Confirmed Active Panic disorder Confirmed Active Severe obesity (BMI 35.0-39.9) with comorbidity Confirmed Active Sleep apnea Confirmed Active Social History Social History Type Response Smoking Status Never smoker entered on: 10/10/15 Sex Sex Representation Female (finding) Patient Care team information Care Team Personnel Name: Evie Link MD Position: [facility] Outreach Member Role: PCP Address: [address] [place] [address] [address] Evie Link MD [address] Telecom: Name: Xena Tuttle RN Position: S RN Member Role: Primary Care Nurse Name: Tomasa Bocanegra RN Position: S RN Member Role: Primary Care Nurse Name: Martha Rangel RN Position: S RN Member Role: Primary Care Nurse Care Team Related Persons Name: NESTOR PANDYA Name: ALF PANDYA Insurance Providers Guarantor name: [facility] Health [facility] Information #: 1 Payer: [employer] Member Number: NA Policy Number: NA Group Number: NA
--- OUTSIDE RECORDS SUMMARY | 2024-07-18 13:58 | XMS_ITS | Continuity of Care Document ---
Author Organization [facility] Address [address], [address], [address] [place] [address]- Care Team Providers Care Tier Lift Truck Operator Name Role Phone Nikolay THOMPSON, Evie Denis Primary Care Physician [phone] [id number] Date[facility]s): 06/02/24 - 07/02/24 [facility] [address], [address] [place] [address]- Attending Physician: Admtr, [id number] Admitting Physician: Admtr, Max Referring Physician: Admtr, Ar8 Encounter Type: Triage [...] 9:59:00 AM EST, Route to Pharmacy Electronically, [facility]/pharmacy #[id number], Partial fill upon patient request if the [...] Refills, Maintenance, 05/23/24 3:03:00 PM EDT, Tablet, [facility]/pharmacy #[id number], Partial fill upon patient request [...] Refills, Maintenance, 06/07/24 9:59:00 AM EST, Tablet, [facility]/pharmacy #[id number], Partial fill upon patient request [...] 10:00:00 AM EST, Route to Pharmacy Electronically, [facility]/pharmacy #[id number], Partial fill upon patient request [...] 1 Refills, Maintenance, 06/15/24 1:20:00 PM EST, [facility] ST[id number], 168, cm, 06/07/24 9:19:00 EST, Height, 101.3, [...] Refills, Maintenance, 06/07/24 10:00:00 AM EST, Tablet, [facility]/pharmacy #[id number], Partial fill upon patient request [...] 3:06:00 PM EDT, Route to Pharmacy Electronically, [facility]/pharmacy #[id number], Partial fill upon patient request [...] Team Personnel Name: Evie Link MD Position: [facility] Outreach Member Role: PCP Address: [address] [place] [address] [address] Evie Link MD [address] Telecom: Name: Xena Tuttle RN Position: S RN Member Role: Primary Care Nurse Name: Tomasa Bocanegra RN Position: S RN Member Role: Primary Care Nurse Name: Martha Rangel RN Position: S RN Member Role: Primary Care Nurse Care Team Related Persons Name: NESTOR PANDYA Name: ALF PANDYA Insurance Providers Guarantor name: [facility] Information #: 1 Payer: [employer] Member Number: NA Policy Number: NA Group Number: NA
--- NOTE | 2024-07-18 13:59 | MHC.OFFVIS ---
Intake Visit Reasons: PO LT distal radius ORIF 04/20/24 , ROM check Intake Note: Maribell is a 63 year old right hand dominant female who presents today with her daughter for post operatively s/p left distal radius ORIF w/ Dr Alvarez DOS: 04/20/2024. PAtient states she has been doing PT and OT at home, she expresses she is having no improvement from this. She is unable to drive, cook, dress herself, and do other ADLs necessary. She wants to discuss possible manipulation of hand to see if this helps out her ROM. She states her 2nd, 3rd, 4th and 5th digits are turning in laterally. Allergies sumatriptan [From Imitrex] Allergy (Severe, Verified 07/18/24 14:06) Palpitations bee pollen [bee stings] Allergy (Verified 07/18/24 14:06) Anaphylaxis latex Allergy (Verified 07/18/24 14:06) Rash HPI HPI PO LT distal radius ORIF 04/20/24 , ROM check: Details: Maribell is a 63 year old right hand dominant female who presents today with her daughter for post operatively s/p left distal radius ORIF w/ Dr Alvarez DOS: 04/20/2024. PAtient states she has been doing PT and OT at home, she expresses she is having no improvement from this. She is unable to drive, cook, dress herself, and do other ADLs necessary. She expresses that her occupational therapist mentioned a possible manipulation under anesthesia to improve her range of motion, and wants to discuss possible manipulation of hand to see if this helps out her ROM. She states her 2nd, 3rd, 4th and 5th digits are turning in laterally. [facility] Surgical History Status post-operative repair of type I or II open fracture of right hip H/O right wrist surgery Social History Alcohol intake: never Patient Tobacco Use Status: Never used Tobacco Current occupational status: unemployed Review of Systems Const All systems reviewed & are unremarkable except as noted in HPI and below Physical Exam Extrem Other: Patient is alert, oriented, and in no acute distress. Neuro: Normal sensation of the tips of all digits of the left hand at this time Vascular: Cap refill brisk Pain: Patient reports no tenderness to palpation about the left distal radius ROM: Patient is not able to make closed fist with the left hand at this time, but range of motion is improved from last visit Patient is able to extend all digits of the left hand fully and without difficulty Skin: Well-approximated and well-healed incision site noted on the volar aspect of the patient's left wrist No evidence of infection General: No ecchymosis, erythema, or evidence of infection. Psych: Appears grossly normal Affect normal Attitude cooperative Assessment & Plan Assessment & Plan (1) Displaced fracture of left ulna styloid process, initial encounter for closed fracture: Code(s): S52.612A - Displaced fracture of left ulna styloid process, initial encounter for closed fracture Category: Medical (2) Fracture of left distal radius: Code(s): S52.502A - Unspecified fracture of the lower end of left radius, initial encounter for closed fracture Category: Medical Plan 1. Left distal radius fracture status post ORIF DOS 04/20/2024 Patient was to be recovering fairly well postoperatively Patient is educated about the typical recovery course At this time, patient is informed that she should absolutely continue working with occupational therapy, as it was very important that she gets better range of motion back in her left hand and wrist Patient was amenable to this plan Patient was informed that she only needs to wear the Velcro wrist splint in busy or high injury risks situations at this time, and at all the time should remove the splint to work on range of motion of the hand and wrist Patient was amenable to this plan Patient will follow-up in 6-8 weeks for [id number] check, sooner with any acute concerns Coding Level of Care Code Global (79390) Diagnoses Displaced fracture of left ulna styloid process, initial encounter for closed fracture S52.612A Fracture of left distal radius S52.502A
== END 2024-07-18 14:21 | disposition home or self-care (01) ==
PROVIDERS: PCP Internal Medicine
DX: S52.612A Displaced fracture of left ulna styloid process, initial encounter for closed fracture (principal); S52.502A Unspecified fracture of the lower end of left radius, initial encounter for closed fracture
CPT/HCPCS: 99024

== ENCOUNTER → 2024-07-18 13:56 | Outpatient (BNVA) | payer OTHER, SELFPAY | PROVIDERS: PCP Internal Medicine | DX: S52.502A Unspecified fracture of the lower end of left radius, initial encounter for closed fracture (principal); S52.612A Displaced fracture of left ulna styloid process, initial encounter for closed fracture; X58.XXXA Exposure to other specified factors, initial encounter; Y93.9 Activity, unspecified; Y92.9 Unspecified place or not applicable; Y99.9 Unspecified external cause status | CPT/HCPCS: 99212 ==

== ENCOUNTER 2024-08-22 13:43 | Outpatient (AMB) | payer OTHER, SELFPAY ==
--- NOTE | 2024-08-22 13:54 | A.OFFVIS_ITS ---
Intake Visit Reasons: OV LT distal radius ORIF 04/20/24 , ROM check Intake Note: Maribell is a 63 year old right hand dominant female who presents today with her spouse for a follow up visit and range of motion check s/p left distal radius ORIF w/ Dr Alvarez DOS: 04/20/2024. Patient reports she has not started PT, states she was able to schedule an appointment with PT for next week. She continues to have stiffness and pain located at the dorsal aspect of hand. She continues to wear wrist brace as instructed. Allergies sumatriptan [From Imitrex] Allergy (Severe, Verified 08/22/24 14:03) Palpitations bee pollen [bee stings] Allergy (Verified 08/22/24 14:03) Anaphylaxis latex Allergy (Verified 08/22/24 14:03) Rash HPI HPI OV LT distal radius ORIF 04/20/24 , ROM check: Details: Maribell is a 63 year old right hand dominant female who presents today with her daughter for post operatively s/p left distal radius ORIF w/ Dr Alvarez DOS: 04/20/2024. PAtient states she has been doing PT and OT at home, she expresses she is having no improvement from this. She is unable to drive, cook, dress herself, and do other ADLs necessary. She expresses that her occupational therapist mentioned a possible manipulation under anesthesia to improve her range of motion, and wants to discuss possible manipulation of hand to see if this helps out her ROM. Patient does state that her range of motion improved very significantly since previous evaluation, but is still not full. Patient states that she will finally be starting occupational therapy next week, as she has struggled mightily to find a clinic where she can get in. Denies numbness or tingling. No other acute complaints or concerns at this time [facility] Surgical History Status post-operative repair of type I or II open fracture of right hip H/O right wrist surgery Social History Alcohol intake: never Patient Tobacco Use Status: Never used Tobacco Current occupational status: unemployed Review of Systems Const All systems reviewed & are unremarkable except as noted in HPI and below Physical Exam Extrem Other: Patient is alert, oriented, and in no acute distress. Neuro: Normal sensation of the tips of all digits of the left hand at this time Vascular: Cap refill brisk Pain: Patient reports no tenderness to palpation about the left distal radius ROM: Patient is able to make closed fist with the left hand at this time, with encouragement Patient is able to extend all digits of the left hand fully and without difficulty Skin: Well-approximated and well-healed incision site noted on the volar aspect of the patient's left wrist No evidence of infection General: No ecchymosis, erythema, or evidence of infection. Psych: Appears grossly normal Affect normal Attitude cooperative Assessment & Plan Assessment & Plan (1) Displaced fracture of left ulna styloid process, initial encounter for closed fracture: Code(s): S52.612A - Displaced fracture of left ulna styloid process, initial encounter f or closed fracture Category: Medical (2) Fracture of left distal radius: Code(s): S52.502A - Unspecified fracture of the lower end of left radius, initial encounter for closed fracture Category: Medical Plan 1. Left distal radius fracture status post ORIF DOS 04/20/2024 Patient was to be recovering fairly well postoperatively Patient is educated about the typical recovery course At this time, patient is informed that she should absolutely continue working with occupational therapy, as it was very important that she gets better range of motion back in her left hand and wrist Patient was amenable to this plan Patient was informed that she only needs to wear the Velcro wrist splint in busy or high injury risks situations at this time, and at all the time should remove the splint to work on range of motion of the hand and wrist Patient was amenable to this plan Patient will follow-up in 8 weeks for [id number] check, sooner with any acute concerns Coding Level of Care Code Est Pt Level 3 (55231) Diagnoses Displaced fracture of left ulna styloid process, initial encounter for closed fracture S52.612A Fracture of left distal radius S52.502A
--- OUTSIDE RECORDS SUMMARY | 2024-08-22 14:40 | XMS_ITS | Clinical Summary ---
Author Organization [facility] Address [address] [place] [address] Phone Care Team Providers Care Surgery Consultant Name Role Phone Evie Cobos MD Primary Care Provider [phone] Allergies Active Allergy Reactions Criticality Noted Date Comments Bee Venom Protein (Honey Bee) 2019 Latex 12/13/2019 Sumatriptan 12/13/2019 Medications Medication Sig Dispensed Refills Start Date End Date Status acetaminophen (TYLENOL) 325 mg tablet Take 2 tablets (650 mg total) by mouth. 12/13/2021 Active atorvastatin (LIPITOR) 80 mg tablet 02/16/2022 Active docusate sodium (COLACE) 100 mg capsule TAKE 1 CAPSULE BY MOUTH TWICE A DAY 02/02/2022 Active estradioL (ESTRACE) 0.01 % (0.1 mg/gram) vaginal cream APPLY PEA-SIZED AMOUNT VAG QHS FOR 2 WKS AND THEN 3 TIMES WEEKLY 04/03/2020 Active losartan-hydroCHLORO thiazide (HYZAAR) 100-25 mg per tablet 02/14/2022 Acti ve oxyCODONE (ROXICODONE) 5 mg immediate release tablet TAKE 1 TABLET BY MOUTH EVERY 6 HOURS NEEDED FOR MODERATE PAIN (4-6 ON PAIN SCALE) 02/19/2022 Active Eliquis 5 mg tablet TAKE 1 TAB BY MOUTH 2 TIMES A DAY,X30 DAYS 06/14/2024 Active amLODIPine (NORVASC) 10 mg tablet TAKE 1 TAB BY MOUTH DAILY AT BEDTIME,X30 DAYS 06/07/2024 Active ibuprofen (ADVIL,MOTRIN) 600 mg tablet Take 1 tablet (600 mg total) by mouth every 6 (six) hours if needed. for pain 04/20/2024 Active losartan (COZAAR) 50 mg tablet 07/03/2024 Active metoprolol succinate (TOPROL-XL) 100 mg 24 hr tablet Take 1 tablet (100 mg total) by mouth 1 (one) time each day. 04/13/2024 Active ondansetron ODT (ZOFRAN-ODT) 4 mg disintegrating tablet Dissolve 1 tablet (4 mg total) on top of the tongue every 8 (eight) hours if needed. for nausea 11/27/2023 Active pantoprazole (PROTONIX) 40 mg EC tablet Take 1 tablet (40 mg total) by mouth 1 (one) time each day. 06/14/2024 Active sertraline (ZOLOFT) 50 mg tablet Take 1 tablet (50 mg total) by mouth 1 (one) time each day in the morning. 06/13/2024 Active anastrozole (ARIMIDEX) 1 mg Take 1 tablet (1 mg total) by mouth 1 (one) time each day Swallow whole with a drink of water. 30 tablet 5 07/05/2024 Active calcium carbonate-cholecalci ferol (OYSTER SHELL) 250 mg-3.125 mcg (125 unit) per tablet TAKE 1 TABLET BY MOUTH 1 TIME EACH DAY. 90 tablet 1 08/21/2024 Active calcium carbonate-vitamin D3 600 mg-10 mcg (400 unit) chewable tablet Chew 1 tablet 1 (one) time each day. 30 tablet 11 08/01/2024 5 Discontinued calcium carbonate-cholecalci ferol (OYSTER SHELL) 250 mg-3.125 mcg (125 unit) per tablet Take 1 tablet by mouth 1 (one) time each day. 30 tablet 3 08/01/2024 5 Discontinued Encounters Date Type Department Care Team Description 08/01/2024 Telephone [facility] Hematology Oncology [address] [place] [address] Kimberly Malagon MD 07/10/2024 12:29 PM EST - 07/10/2024 11:59 PM EST Hospital Encounter [facility] Bone Density [address] [place] [address] Menopausal and female climacteric states Discharge Disposition: Home or Self Care 07/05/2024 1:45 PM EST Office Visit [facility] Hematology Oncology [address] [place] [phone] Kimberly Malagon MD Invasive ductal carcinoma of breast, female, right (CMS/HCC) (Primary Dx) 07/05/2024 1:15 PM EST Office Visit Breast [facility] [address] [facility] [address] [place] [phone] Zuri Lynn MD Malignant neoplasm of right breast in female, estrogen receptor positive, unspecified site of breast (CMS/HCC) (Primary Dx); History of therapeutic radiation 06/14/2024 Telephone [facility] Hematology Oncology [address] [place] [phone] Amanda Lynne MA Bone density 06/05/2024 Telephone [facility] [address] [facility] [address] [place] [phone] Kalyani Ayon MD Hospital Follow-up from Last 3 Months Surgical History Surgery Date Site/Laterality Comments OTHER SURGICAL HISTORY 2016 PROCEDURE: OK LAPS SURG CHOLECYSTECTOMY W/CHOLANGIOGRAPHY TUBAL LIGATION 1987 PROCEDURE: HISTORICAL TUBAL LIGATION OTHER SURGICAL HISTORY 1974 Bilateral PROCEDURE: OK TONSILLECTOMY PRIMARY/SECONDARY AGE 13/> Medical History Medical History Date Comments Depression 1977 DX:Depression; C OMMENT: since teenager Hypertension 2009 DX:Hypertension Sleep apnea 2007 DX:Sleep apnea; COMMENT: On CPAP 5-12 cm H2O. at [facility]. Hyperlipidemia 1977 DX:Hyperlipidemi a; COMMENT: Familiar Gastroenteritis DX:Gastroenterit is; COMMENT: ACUTE VIRAL Dehydration DX:Dehydration Acute pancreatitis DX:Acute panc reatitis Obesity DX:Obesity Carpal tunnel syndrome DX:Carpal tunnel syndrome; COMMENT: RIGHT HAND Family History Medical History Relation Name Comments Heart failure Brother 1 No Known Problems Brother 2 due t o shooting at 29 Diabetes Brother 3 Hyperlipidemia Brother 3 Hypertension Brother 3 Prostate cancer Brother 3 Bipolar disorder Brother 4 Hyperlipidemia Brother 4 Other: BPH Brother 4 Other: Diabetes Insipitus Brother 4 Other: cancer of the eye Brother 4 Depression Father Diabetes Father Lung cancer Father Alzheimer's disease Mother Hyperlipidemia Mother Hyperlipidemia Sister 1 Stomach cancer Sister 1 Other: Other Sister 2 had from M I ? post MVA Arthritis Sister 3 Hyperlipidemia Sister 3 Hypertension Sister 3 Brain Aneurysm Sister 4 Hypertension Sister 4 Other: Cardiomegaly Sister 4 Thyroid disease Sister 4 Relation Name Status Comments Brother 1 Brother 2 Brother 3 Alive Brother 4 Alive Father Maternal Grandfather yo luke? Maternal Grandmother unknown but young Mother Paternal Grandfather Paternal Grandmother Sister 1 Sister 2 Sister 3 Alive Sister 4 Alive Sister 5 Social History Tobacco Use Types Packs/Day Years Used Date Smoking Tobacco: Never Smokeless Tobacco: Never Alcohol Use Standard Drinks/Week Comments No 0 (1 standard drink = 0.6 oz pur e alcohol) Sex and Gender Information Value Date Recorded Sex Assigned at Female 06/07/2024 1:20 PM EST Gender Identity Female 06/07/2024 1:20 PM EST Sexual Orientation Straight 06/07/2024 1: 20 PM EST Job Start Date Occupation Industry Not on file Not on file Not on file Obstetrics History Last Filed Vital Signs Vital Sign Reading Time Taken Comments Blood Pressure 117/72 07/05/2024 2:00 PM EST Pulse 80 07/05/2024 2:00 PM EST Temperature 36.8 ??C (98.2 ??F) 07/05/2024 2:00 PM ES T Respiratory Rate - - Oxygen Saturation 99% 07/05/2024 2:00 PM EST Inhaled Oxygen Concentration - - Weight 104 kg (229 lb) 07/05/2024 2:00 PM EST Height 167.6 cm (5' 6 ) 03/16/2024 3:01 PM EDT Body Mass Index 36.96 03/16/2024 3:01 PM EDT Plan of Treatment Upcoming Encounters Date Type Department Care Team (Late st Contact Info) Description 12/28/2024 1:00 PM EDT [facility]oint[facility] [address] [phone] 12/28/2024 1:45 PM EDT Office Visit [facility] Hematology Oncology [address] [place] [phone] Kimberly Malagon MD [address] [place] [address] 07/11/2025 1:15 PM EST Office Visit [facility] [place] [address] [facility] [address] [place] [phone] Zuri Lynn MD [address] [facility] [address] [address] [place] [address] Health Maintenance Due Date Last Done Comments COVID-19 Vaccine (#1) 1966 Pneumococcal Vaccine: Pediatrics (0 to 5 Years) and At-Risk Patients (6 to 64 Years) (1 of 2 - PCV) 10/23/1967 Zoster Vaccines (1 of 2) 1980 Cervical Cancer Screening: P ap Smear 1982 RSV Immunization Patients 60 + Years Old (1 - Risk 60-74 years 1-dose series) 2021 Cholesterol Screening (Lipid Panel) 07/02/2022 Colorectal Cancer Screening: Colonoscopy 07/02/2022 Depression Screening 07/02/2022 HIV Screening 07/02/2022 Hepatitis C Screening 07/02/2022 Social Influencers of Health Screening 07/02/2022 Hypertension/CHF/CAD Annual BMP Blood Test 02/18/2024 Influenza Vaccine (#1) 2024 Breast Cancer Screening 12/27/2025 12/28/19 24, 01/01/2022, 11/29/2020 DTaP,Tdap,and Td Vaccines (2 - Td or Tdap) 01/02/2033 01/02/2023 Osteoporosis Screening (Bone Density Screening) 07/10/2034 07/10/2024, 07/08/2022 HIB Vaccines Aged Out No longer eligi ble based on patient's age to complete this topic HPV Vaccines Aged Out No longer eligi ble based on patient's age to complete this topic Hepatitis A Vaccines Aged Out No long er eligible based on patient's age to complete this topic Hepatitis B Vaccines Aged Out No long er eligible based on patient's age to complete this topic IPV Vaccines Aged Out No longer eligi ble based on patient's age to complete this topic MMR Vaccines Aged Out No longer eligi ble based on patient's age to complete this topic Meningococcal ACWY Vaccine Aged Out N o longer eligible based on patient's age to complete this topic RSV Immunization Patients Under 20 months Aged Out No longer eligible b ased on patient's age to complete this topic Varicella Vaccines Aged Out No longer eligible based on patient's age to complete this topic Procedures Procedure Name Priority Date/Time Associated Diagnosis Comments BD BONE DENSITY DXA AXIAL SKELETON Routine 07/10/2024 1:14 PM EST Menopausal and female climacteric states MEKA SCREENING DIGITAL Routine 01/01/2022 5:01 PM EDT Encounter for screening mammogram for malignant neoplasm of breast from Last 3 Months or Most Recently Relevant to Health Maintenance Results * BD Bone Density DXA Axial Skeleton (07/10/2024 1:14 PM EST) Anatomical Region Laterality Modality Wrist, Hip, L-spine Bone Densito metry 07/10/2024 1:28 PM EST Addenda Addendum by Christine Ricci MD on 07/10/2024 1:30 PM EST History: Low estrogen state due to menopause. Right hip replacement. Personal history of fracture. Comparison: 07/08/22 Findings: Bone densitometry is performed utilizing dual energy x-ray absorptiometry (DXA) in the [employer] unit. The lumbar spine and left proximal femur are evaluated in the AP projection. The FRAX questionaire was completed. The results indicate low bone mass (osteopenia), with a lumbar spine T-score of -1.7. The Z score is -1.5, indicating low bone mineral density for age. There have been statistically significant decreases in bone mineral density in the spine and left total femur since the previous study. ??The detailed DEXA report will be mailed to the referring physician's office. DualFemur FRAX: 10-year Probability of Fracture: Major Osteoporotic 11.0 percent ??Hip 0.5 percent. IMPRESSION: Osteopenia. ? [id number] -------- FINAL REPORT -------- Dictated By: Christine Ricci Dictated Date: 07/10/2024 13:28 ET Assigned Physician: Christine Ricci Reviewed and Electronically Signed By: Christine Ricci Signed Date: 07/10/2024 13:30 ET Workstation ID: [id number] Transcribed By: Self Edit Transcribed Date: 07/10/2024 13:28 ET Impressions 07/10/2024 1:30 PM EST Osteopenia. ? [id number] -------- FINAL REPORT -------- Dictated By: Christine Ricci Dictated Date: 07/10/2024 13:28 ET Assigned Physician: Christine Ricci Reviewed and Electronically Signed By: Christine Ricci Signed Date: 07/10/2024 13:30 ET Workstation ID: [id number] Transcribed By: Self Edit Transcribed Date: 07/10/2024 13:28 ET Narrative 07/10/2024 1:30 PM EST History: Low estrogen state due to menopause. Right hip replacement. Personal history of fracture. Comparison: 07/08/22 Findings: Bone densitometry is performed utilizing dual energy x-ray absorptiometry (DXA) in the [employer] Pro[employer] unit. The lumbar spine and left proximal femur are evaluated in the AP projection. The FRAX questionaire was completed. The results indicate low bone mass (osteopenia), with a lumbar spine T-score of -1.7. The Z score is -1.5, indicating low bone mineral density for age. There have been statistically significant decreases in bone mineral density in the spine and left total femur since the previous study. ??The detailed DEXA report will be mailed to the referring physician's office. DualFemur FRAX: 10-year Probability of Fracture: Major Osteoporotic 11.0 percent ??Hip 0.5 percent. Procedure Note Christine Ricci MD - 07/10/2024 History: Low estrogen state due to menopause. Right hip replacement.Personal history of fracture. Comparison: 07/08/22 Findings: Bone densitometry is performed utilizing dual energy x-ray absorptiometry(DXA) in the [employer] unit. The lumbar spine and left proximal femurare evaluated in the AP projection. The FRAX questionaire was completed. The results indicate low bone mass (osteopenia), with a lumbar spineT-score of - 1.7. The Z score is -1.5, indicating low bone mineral densityfor age. There have been statistically significant decreases in bone mineraldensity in the spine and left total femur since the previous study. Thedetailed DEXA report will be mailed to the referring physician's office. DualFemur FRAX: 10-year Probability of Fracture: Major Osteoporotic 11.0percent Hip 0.5 percent. IMPRESSION: Osteopenia. [id number] -------- FINAL REPORT -------- Dictated By: Christine Ricci Dictated Date: 07/10/2024 13:28 ET Assigned Physician: Christine Ricci Reviewed and Electronically Signed By: Christine Ricci Signed Date: 07/10/2024 13:30 ET Workstation ID: [id number] Transcribed By: Self Edit Transcribed Date: 07/10/2024 13:28 ET Kimberly Malagon MD IMG DXA PROCEDURES * MEKA SCREENING DIGITAL (01/01/2022 5:01 PM EDT) Anatomical Region Laterality Modality Mammography 01/01/2022 3:29 PM EDT Narrative 01/01/2022 5:01 PM EDT [facility] Diagnostic Imaging Department [address] [place], [place] [phone] Patient: ??JONATHON MAURICIO ?/Age/Sex: 1960 - 61 - F Unit#: ??[id number] ? Location/Status: ??SPDIMAM/REG CLI ? Mnemonic/Ordering Site: ??DIGSC/SPMAM Ordering Physician: ??EVIE COBOS MD Meka Screening Digital - 01/01/22 - 1600 History: Breast cancer screening. Technique: ?? Bilateral digital mammography. Conventional CC and MLO projections with tomosynthesis MLO views and computer aided detection. Comparison: [facility] 11/29/2020, dating back to 12/26/2010. Findings: ?? Breast tissue consists of fibroglandular tissue diffusely, decreasing sensitivity of mammography, category d density (as calculated by [employer] software). Oval asymmetry anterior medial right breast is again demonstrated. ??There is oval irregular asymmetry evident anterior laterally, 3 cm from the nipple measur ing approximately 1.1 x 1.4 cm representing a change. ??No associated microcalcification. ??No concerning change on the left. Impression: 1. ??Right breast 1.1 x 1.4 cm masslike asymmetry anterior lateral, approximate 9 o'clock position of the juxta areolar breast, 3 cm from the nipple is incomple tely evaluated. ??Recommend targeted ultrasound for further assessment. 2. ??No suspicious interval change on the left. Patient will be contacted directly to arrange for supplementary imaging. BIRADS Category 0: Incomplete. Needs further imaging evaluation, [id number], [id number] Patient information entered into a reminder system with a target date for the next mammogram. [id number] Dictating Physician: ??ROBER RODRIGUEZ MD Electronically Signed by: ??ROBER RODRIGUEZ MD Dic Date/Time: ??01/01/22 1651 Sign date/Time: ??01/01/22 1701 Procedure Note Rober Rodriguez MD - 07/15/2022 [facility] Diagnostic Imaging Department [address] [place] [id number] Patient: JONATHON MAURICIO /Age/Sex: 1960 - 61 - F Unit#: [id number] Location/Status: SPDIMAM/REG CLI Mnemonic/Ordering Site: [facility] Ordering Physician: EVIE COBOS MD Meka Screening Digital - 01/01/22 - 1600 History: Breast cancer screening. Technique: Bilateral digital mammography. Conventional CC and MLOprojections with tomosynthesis MLO views and computer aided detection. Comparison: [facility] 11/29/2020, dating back to 12/26/2010. Findings: Breast tissue consists of fibroglandular tissue diffusely, decreasing sensitivity of mammography, category d density (as calculatedby [employer] software). Oval asymmetry anterior medial right breast is again demonstrated. Thereis oval irregular asymmetry evident anterior laterally, 3 cm from the nipplemeasur ing approximately 1.1 x 1.4 cm representing a change. No associated microcalcification. No concerning change on the left. Impression: 1. Right breast 1.1 x 1.4 cm masslike asymmetry anterior lateral,approximate 9 o'clock position of the juxta areolar breast, 3 cm from the nipple isincomple tely evaluated. Recommend targeted ultrasound for further assessment. 2. No suspicious interval change on the left. Patient will be contacted directly to arrange for supplementary imaging. BIRADS Category 0: Incomplete. Needs further imaging evaluation, [id number], [address] Patient information entered into a reminder system with a [place]the [place]ogram. [id number] Dictating Physician: ROBER RODRIGUEZ MD Electronically Signed by: ROBER RODRIGUEZ MD Dic Date/Time: 01/01/22 7271 Sign date/Time: 01/01/22 9562 Evie Cobos MD IMG BI PROCEDURES from Last 3 Months or Most Recently Relevant to Health Maintenance Advance Directives Documents on File Type Date Recorded Patient Financial Management Expl anation Health Care Decision (hx) 04/15/2023 AD BARTH DIRECTIVE Health Care Decision (hx) 04/15/2023 AD BARTH DIRECTIVE Health Care Decision (hx) 04/15/2023 AD BARTH DIRECTIVE Health Care Decision (hx) 04/15/2023 AD BARTH DIRECTIVE Health Care Decision (hx) 04/15/2023 AD BARTH DIRECTIVE Health Care Decision (hx) 04/15/2023 AD BARTH DIRECTIVE Health Care Decision (hx) 04/15/2023 AD BARTH DIRECTIVE Health Care Decision (hx) 04/15/2023 AD BARTH DIRECTIVE Health Care Decision (hx) 04/15/2023 AD BARTH DIRECTIVE Health Care Decision (hx) 04/15/2023 AD BARTH DIRECTIVE Care Teams Surgery Consultant Relationship Specialty Start Date End Date Evie Cobos MD [facility] [address] PCP - General Internal Medicine 03/24/18
--- OUTSIDE RECORDS SUMMARY | 2024-08-22 14:40 | XMS_ITS | Clinical Summary ---
Author Organization [facility] Address [address] [place] [address] Care Team Providers Care Theatrical Trouper Name Role Phone Patricia Stanton EVGENY Primary Care Provider [phone] Source Comments PLEASE NOTE, if this patient is a minor, it may be UNLAWFUL to discuss sensitive information that is contained in these records (such as FAMILY PLANNING, MENTAL HEALTH or SUBSTANCE ABUSE) with the minor patient's parent or other person without the patient's specific authorization.[facility] Medications fluoride, sodium, (SF 5000 PLUS) 1.1 % creaIndications: Tooth sensitivity Place in mouth once daily apply a thin ribbon on toothbrush. [place] thoroughly once daily for two minutes, preferably at bedtime. After use expectorate. For best results, do not eat, drink, or rinse for 30 minutes. 51 g 0 Active chlorhexidine gluconate (PERIDEX) 0.12 % solutionIndicati ons:Gingivitis Swish and spit 15 mL 2 (two) times daily . Do not eat, drink, or swish out for 30 min after use. 1 Bottle 1 1 Active Active Problems No known active problems Encounters Date Type Department Care Team Description 07/12/2024 4:20 PM EST Office Visit [facility] [address] [place] [phone] Eric Roque DMD Fracture of crown, enamel, and dentin of tooth without pulp exposure (Primary Dx); Caries 07/12/2024 Travel from Last 3 Months Social History Tobacco Use Types Packs/Day Years Used Date Smoking Tobacco: Never Assessed Social Connections Answer Date Recorded Connectedness 0 04/12/2024 Financial Resource Strain Answer Date R ecorded Financial Resource Strain 0 2020 Stress Answer Date Recorded Stress 0 12/11/2020 Physical Activity Answer Date Recorded Physical Activity 0 12/11/2020 Food Insecurity Answer Date Recorded Food 0 04/20/2024 Transportation Needs Answer Date Record ed Transportation 0 12/11/2020 Housing Stability Answer Date Recorded Housing 0 12/11/2020 Safety and Environment Answer Date Anthony rded Safety 0 12/11/2020 Utilities Answer Date Recorded Utilities 0 12/11/2020 Employment Answer Date Recorded Stress 0 04/12/2024 Comments Unknown Sex and Gender Information Value Date Recorded Sex Assigned at Not on file Legal Sex Female 8:25 AM PDT Gender Identity Not on file Sexual Orientation Not on file Last Filed Vital Signs Vital Sign Reading Time Taken Comments Blood Pressure 143/89 04/22/2024 9:49 AM EDT Pulse 93 04/22/2024 9:49 AM EDT Temperature - - Respiratory Rate - - Oxygen Saturation - - Inhaled Oxygen Concentration - - Weight - - Height - - Body Mass Index - - Plan of Treatment Upcoming Encounters Date Type Department Care Team (Late st Contact Info) Description 10/23/2024 9:40 AM EDT Office Visit [address] [phone] Britni Hinkle [address] [place] [address] Health Maintenance Due Date Last Done Comments Diabetes Screening 1960 HPV Screening 1960 Hepatitis C Screening 1960 Lipid Screening 1960 Pap + HPV 1961 Tobacco Screening 1961 HIV Screening 1976 Imm-DTaP/Tdap/Td (1 - Tdap) 1980 Cervical Cancer Screening 1982 Pap Smear 1982 Breast Cancer Screening (Mammogram) 2001 CT Colonography 2006 Colonoscopy 2006 Colorectal Cancer Screening 2006 FIT/gFOBT 2006 Fecal DNA 2006 Flexible Sigmoidoscopy 2006 Imm-Zoster, Recombinant (1 of 2) 10/23/2011 [id number] ( season) 2024 Imm-Influenza (#1) 2024 Alcohol and Drug Screen 07/26/2024 Depression Annual Screen 07/26/2024 Hypertension Screening (#1) 04/22/2025 Dental BW 04/24/2025 04/22/2024 Dental Examination 04/24/2025 04/22/2024 Dental Perio Charting 04/24/2025 04/22/2024 Dental Prophy 04/24/2025 04/22/2024 Dental FMX/Pano 04/24/2029 04/22/2024 Cervical Ablation/Cold-Knife Conization Discontinued Cervical Cryotherapy Discontinued Colposcopy Discontinued Endometrial Biopsy Discontinued Excision/Leep Discontinued HPV Genotyping Discontinued Vaginal Pap Discontinued Vulvoscopy Discontinued Procedures Procedure Name Priority Date/Time Associated Diagnosis Comments 8 MIFL RESIN-BASED COMPOSITE-4/> SURFACES ANTERIOR Routine 07/12/2024 4:20 PM EST Fracture of crown, enamel, and dentin of tooth without pulp exposure Caries CASE PRESENTATION SUBS DTL & EXTENSIVE TX PLN Routine 07/12/2024 4:20 PM EST Fracture of crown, enamel, and dentin of tooth without pulp exposure 9 M RESIN-BASED COMPOSITE ONE SURFACE ANTERIOR Routine 07/12/2024 4:20 PM EST Fracture of crown, enamel, and dentin of tooth without pulp exposure INTRAORAL - COMP SERIES OF RADIOGRAPHIC IMAGES Routine 04/22/2024 9:40 AM EDT Caries of enamel (incipient) Fracture of crown, enamel, and dentin of tooth without pulp exposure PROPHYLAXIS - ADULT Routine 04/22/2024 9 :40 AM EDT Caries of enamel (incipient) Fracture of crown, enamel, and dentin of tooth without pulp exposure PERIODIC ORAL EVALUATION ESTABLISHED PATIENT Routine 04/22/2024 9:40 AM EDT Caries of enamel (incipient) Fracture of crown, enamel, and dentin of tooth without pulp exposure from Last 3 Months or Most Recently Relevant to Health Maintenance [place] Care Teams Theatrical Trouper Relationship Specialty Start Date End Date Patricia Stanton DMD [address] [place] [id number] PCP - General 08/26/19
--- OUTSIDE RECORDS SUMMARY | 2024-08-22 14:40 | XMS_ITS | Encounter Summary ---
Author Organization [facility] Address [address] [place] [address] Care Team Providers Care Program Management Professional Name Role Phone Evie Link MD Primary Care Provider [phone] Encounter Details Date Type Department Care Team (Late st Contact Info) Description 08/01/2024 Telephone [facility] Hematology Oncology [address] [place] [phone] Kimberly Malagon MD [address] [place] [address] Social History Tobacco Use Types Packs/Day Years [...] file Not on file Not on file documented as of this encounter Progress Notes * Rex Givens [place] - 08/01/2024 3:00 PM EST Returned call to pt, explained that bone density test showed osteopenia and described that this signifies a decrease in bone density. Script will be sent over to pt's pharmacy for calcium, vit D complex. * Asay Hemalatha - 08/01/2024 1:47 PM EST Calling for bone density results documented in this encounter Plan of Treatment Upcoming Encounters Date Type Department Care Team (Late st Contact Info) Description 12/28/2024 1:00 PM EDT Appointment [facility] [address] [place] [address] 12/28/2024 1:45 PM EDT Office Visit [facility] Hematology Oncology [address] [place] [phone] Kimberly Malagon MD [address] [place] [address] 07/11/2025 1:15 PM EST Office Visit Breast Care [facility] [address] [facility] [address] [place] [address] Zrui Lynn MD [address] [facility] [address] [place] [address] documented as of this encounter Visit Diagnoses Not on filedocumented in this encounter Care Teams Program Management Professional Relationship Specialty Start Date End Date Evie Link MD [address] [facility] [address] [place], [place] PCP - General Internal Medicine 03/24/18 documented as of this encounter
--- OUTSIDE RECORDS SUMMARY | 2024-08-22 14:40 | XMS_ITS | Encounter Summary ---
Author Organization [facility] Address [address] [place] [address] Care Team Providers Care Personnel Placement Specialist Name Role Phone Evie Link MD Primary Care Provider [phone] Encounter Details Date Type Department Care Team Description 03/27/2022 Social Work [facility] Oncology Services [address] [place] [address] James Keller, [facility] Social History Tobacco Use Types Packs/Day Years Used Date Smoking Tobacco: Never Smokeless Tobacco: Never Alcohol Use Standard Drinks/Week Comments Never 0 (1 standard drink = 0.6 oz pur e alcohol) Sex and Gender Information Value Date Recorded Sex Assigned at Not on file Gender Identity Not on file Sexual Orientation Not on file Job Start Date Occupation Industry Not on file Not on file Not on file COVID-19 Exposure Response Date Recorded In the last 10 days, have yo u been in contact with someone who was confirmed or suspected to have Coronavirus/COVID-19? No / Unsure 03/13/2022 10:14 AM EDT documented as of this encounter Plan of Treatment Not on file documented as of this encounter Visit Diagnoses Not on filedocumented in this encounter Care Teams Personnel Placement Specialist Relationship Specialty Start Date End Date Evie Link MD [address] [phone] PCP - General Internal Medicine 01/29/22 documented as of this encounter
--- OUTSIDE RECORDS SUMMARY | 2024-08-22 14:40 | XMS_ITS | Clinical Summary ---
Author Organization [facility] Address [address] [place] [address] Care Team Providers Care Propagation Worker Name Role Phone Evie Link MD Primary Care Provider Allergies Active Allergy Reactions Criticality Noted Date Comments Bee Sting 12/13/2019 Latex 12/13/2019 Sumatriptan 12/13/2019 Medications Medication Sig Dispensed Refills Start Date End Date Status acetaminophen (TYLENOL) 325 MG tablet Take 650 mg by mouth. 0 12/13/2021 Active atorvastatin (LIPITOR) tablet 80 mg 0 02/16/2022 Active celecoxib (CeleBREX) 200 MG capsule TAKE 1 CAPSULE BY MOUTH DAILY. MEDICATION TO BE STARTED AFTER SURGERY 0 02/02/2022 Active cholestyramine (QUESTRAN) 4 g packet MIX 1 PACK IN 6 OUNCES OF WATER AND DRINK BID 0 06/14/2020 Active docusate sodium (COLACE) 100 MG capsule TAKE 1 CAPSULE BY MOUTH 2 TIMES DAILY. MEDICATION TO BE STARTED AFTER SURGERY 0 02/02/2022 Active estradiol (ESTRACE) 0.1 MG/GM vaginal cream APPLY PEA-SIZED AMOUNT VAG QHS FOR 2 WKS AND THEN 3 TIMES WEEKLY 0 04/03/2020 Active HYDROmorphone (DILAUDID) 2 MG tablet TAKE 1 TO 2 TABLETS BY MOUTH EVERY 4 HOURS NEEDED FOR SEVERE PAIN 0 12/13/2021 Active losartan-hydrochlor othiazide (HYZAAR) 100-25 MG per tablet 0 02/14/2022 Active oxyCODONE (ROXICODONE) 5 MG immediate release tablet TAKE 1 TABLET BY MOUTH EVERY 6 HOURS NEEDED FOR MODERATE PAIN (4-6 ON PAIN SCALE) 0 02/19/2022 Active SODIUM FLUORIDE, DENTAL GEL, 1.1 % GEL Place in mouth once daily apply a thin ribbon on toothbrush. Rodeo thoroughly once daily for two minutes, preferably at bedtime. After use expectorate. For best results, do not eat, drink, or rinse for 30 minutes. 0 02/19/2020 Active anastrozole (ARIMIDEX) 1 MG tablet Take 1 tablet (1 mg total) by mouth daily 30 tablet 11 03/06/2024 Active Active Problems No known active problems Family History Medical History Relation Name Comments Cancer Niece Breast Relation Name Status Comments Niece Social History Tobacco Use Types Packs/Day Years [...] file Not on file Not on file Last Filed Vital Signs Vital Sign Reading Time Taken Comments Blood Pressure 152/83 12/29/2023 2:01 PM EDT Pulse 79 12/29/2023 2:01 PM EDT Temperature 36.6 ??C (97.9 ??F) 12/29/2023 2:01 PM ED T Respiratory Rate - - Oxygen Saturation 100% 12/29/2023 2:01 PM EDT Inhaled Oxygen Concentration - - Weight 103 kg (227 lb) 12/29/2023 2:01 PM EDT Height 167.6 cm (5' 6 ) 11/16/2022 2:55 PM EDT Body Mass Index 36.64 11/16/2022 2:55 PM EDT Plan of Treatment Health Maintenance Due Date Last Done Comments Hepatitis C Screening 1961 COVID-19 Vaccine (#1) 1966 Pneumococcal Vaccine (1 of 2 - PCV) 10/23/1967 Depression Screening 1973 Preventative Health Evaluation 10/23/1979 Shingrix-Zoster Vaccine (1 of 2) 1980 Cervical Cancer Screening (P ap Smear) 1982 Colon Cancer Screening (Colonoscopy) 2006 Breast Cancer Screening (Mammogram) 10/23/2011 DTap / Tdap / Td (2 - Td or Tdap) 09/07/2022 013 Influenza Vaccine (#1) 2024 RSV Adult > 60+ Yrs or Pregn ant (1 - 1-dose 75+ series) 2036 Hepatitis B Vaccines Aged Out No long er eligible based on patient's age to complete this topic RSV Ped < 20 months Aged Out No longe r eligible based on patient's age to complete this topic Care Teams Propagation Worker Relationship Specialty Start Date End Date Evie Link MD [address] [place] [phone] PCP - General Internal Medicine 01/29/22
--- OUTSIDE RECORDS SUMMARY | 2024-08-22 14:40 | XMS_ITS | Clinical Summary ---
Author Organization [facility] Address [address] [place] [address] Care Team Providers Care Heel Seam Rubber Name Role Phone Pcp, No Primary Care Provider Unavailabl e Social History Tobacco Use Types Packs/Day Years Used Date Smoking Tobacco: Never Assessed Sex and Gender Information Value Date Recorded Sex Assigned at Not on file Gender Identity Not on file Sexual Orientation Not on file Plan of Treatment Health Maintenance Due Date Last Done Comments Hepatitis C Virus Screening 1961 HIV Screening 1974 DTaP/Tdap/Td Vaccines (1 - Tdap) 1980 Pneumococcal Vaccines 50+ (1 of 1 - PCV) 10/23/2011 Zoster (Shingles) Vaccine (1 of 2) 10/23/2011 COVID-19 Vaccine (1 - 2023-2 5 season) 2024 RSV Vaccine 60 years and old er and Patients (1 - 1-dose 75+ series) 2036 Hepatitis B Vaccines Aged Out No long er eligible based on patient's age to complete this topic Pneumococcal Vaccine: Pediat melinda (0-5 Years) and At-Risk Patients (6 to 49 Years) Aged Out No longer eligible b ased on patient's age to complete this topic Care Teams Heel Seam Rubber Relationship Specialty Start Date End Date Pcp, No PCP - General General Medicine 05/27/20
== END 2024-08-22 14:19 | disposition home or self-care (01) ==
PROVIDERS: PCP Internal Medicine
DX: S52.612D Displaced fracture of left ulna styloid process, subsequent encounter for closed fracture with routine healing (principal); S52.502D Unspecified fracture of the lower end of left radius, subsequent encounter for closed fracture with routine healing
CPT/HCPCS: 99213

== ENCOUNTER → 2024-08-22 13:43 | Outpatient (BNVA) | payer OTHER, SELFPAY | PROVIDERS: PCP Internal Medicine | DX: S52.612D Displaced fracture of left ulna styloid process, subsequent encounter for closed fracture with routine healing (principal); S52.502D Unspecified fracture of the lower end of left radius, subsequent encounter for closed fracture with routine healing; M25.642 Stiffness of left hand, not elsewhere classified; X58.XXXD Exposure to other specified factors, subsequent encounter; Z98.890 Other specified postprocedural states | CPT/HCPCS: 99212 ==

== ENCOUNTER 2024-10-19 13:57 | Outpatient (AMB) | payer OTHER, SELFPAY ==
--- NOTE | 2024-10-19 14:18 | MHC.OFFVIS ---
Intake Visit Reasons: OV- LT distal radius ORIF 04/20/24 , ROM check Intake Note: Maribell is a 63 year old right hand dominant female who presents today for a ROM check about 6 months s/p Left Distal Radius ORIF 04/20/2024 AR. At this time she wears a velcro wrist splint and removes to work on wrist/hand ROM. Dye Machine Tender Required: No Allergies sumatriptan [From Imitrex] Allergy (Severe, Verified 10/19/24 14:21) Palpitations bee pollen [bee stings] Allergy (Verified 10/19/24 14:21) Anaphylaxis latex Allergy (Verified 10/19/24 14:21) Rash Medication List - Last Reconciled 10/19/24 by Radha Sylvester RN [3 in 1 commode height 66 inches, weight 250 lbs] amlodipine 10 mg PO DAILY anastrozole 1 mg PO DAILY apixaban (Eliquis) 5 mg PO BID calcium-mag oxide-vitamin D3 250-125-100 mg-mg-unit 1 cap PO BID ezetimibe 10 mg PO DAILY ibuprofen 600 mg PO Q6H PRN lidocaine 5% 1 patch topical DAILY losartan 50 mg PO BID losartan-hydrochlorothiazide 100-25 mg 1 tab PO DAILY metoprolol succinate ER 100 mg PO DAILY pantoprazole 40 mg PO DAILY rosuvastatin 40 mg PO DAILY sucralfate 1 g PO QID HPI HPI OV- LT distal radius ORIF 04/20/24 , ROM check: Details: Maribell is a 63 year old right hand dominant female who presents today for a ROM check about 6 months s/p Left Distal Radius ORIF 04/20/2024 AR. At this time she wears a velcro wrist splint and removes to work on wrist/hand ROM. Patient reports that her range of motion has improved drastically since previous evaluation. Patient does express concern that her left ring finger is unable to be actively extended at the DIP joint. No other acute concerns at this time. [facility] Surgical History Status post-operative repair of type I or II open fracture of right hip H/O right wrist surgery Social History Alcohol intake: never Patient Tobacco Use Status: Never used Tobacco Current occupational status: unemployed Review of Systems Const All systems reviewed & are unremarkable except as noted in HPI and below Physical Exam Extrem Other: Patient is alert, oriented, and in no acute distress. Neuro: Normal sensation of the tips of all digits of the left hand at this time Vascular: Cap refill brisk Pain: Patient reports no tenderness to palpation about the left distal radius ROM: Patient is able to make closed fist with the left hand at this time, with encouragement Patient is able to extend all digits of the left hand fully and without difficulty Patient is able to pronate and supinate the left wrist fully and without difficulty Of note, the patient is unable to actively extend at the left ring finger DIP joint Joint is able to be passively extended fully and without difficulty Skin: Well-approximated and well-healed incision site noted on the volar aspect of the patient's left wrist No evidence of infection General: No ecchymosis, erythema, or evidence of infection. Psych: Appears grossly normal Affect normal Attitude cooperative Assessment & Plan Assessment & Plan (1) Displaced fracture of left ulna styloid process, initial encounter for closed fracture: Code(s): S52.612A - Displaced fracture of left ulna styloid process, initial encounter for closed fracture Category: Medical (2) Fracture of left distal radius: Code(s): S52.502A - Unspecified fracture of the lower end of left radius, initial encounter for closed fracture Category: Medical (3) Mallet deformity of left ring finger: Code(s): M20.012 - Mallet finger of left finger(s) Category: Medical Plan 1. Left distal radius fracture status post ORIF DOS 04/20/2024 Patient was to be recovering fairly well postoperatively Patient is educated about the typical recovery course At this time, patient is informed that she should absolutely continue working with occupational therapy, as it was very important that she gets better range of motion back in her left hand and wrist Patient was amenable to this plan No further use of the Velcro wrist splint is indicated, patient was informed of this Patient was amenable to this plan 2. Mallet finger of left ring finger Patient is educated about this condition Patient is educated about the typical treatment course At this time, patient was placed into a finger tip splint holding the DIP joint in full extension Patient is a educated that this injury requires 24/7 splinting for 6 weeks Patient was educated on how to change the splint after the shower Patient was amenable to this plan Patient will follow-up in 6 weeks for reassessment sooner with any acute concerns Coding Level of Care Code Est Pt Level 3 (64668) Diagnoses Displaced fracture of left ulna styloid process, initial encounter for closed fracture S52.612A Fracture of left distal radius S52.502A Mallet deformity of left ring finger M20.012
== END 2024-10-19 15:03 | disposition home or self-care (01) ==
LOC: HO.HOS 13:57
PROVIDERS: PCP Internal Medicine
DX: S52.612A Displaced fracture of left ulna styloid process, initial encounter for closed fracture (principal); S52.502A Unspecified fracture of the lower end of left radius, initial encounter for closed fracture; M20.012 Mallet finger of left finger(s)
CPT/HCPCS: 99213

== ENCOUNTER → 2024-10-19 13:57 | Outpatient (BNVA) | payer OTHER, SELFPAY | PROVIDERS: PCP Internal Medicine | DX: S52.612D Displaced fracture of left ulna styloid process, subsequent encounter for closed fracture with routine healing (principal); S52.502D Unspecified fracture of the lower end of left radius, subsequent encounter for closed fracture with routine healing; M20.012 Mallet finger of left finger(s) | CPT/HCPCS: 99212 ==

== ENCOUNTER 2024-12-01 08:56 | Outpatient (AMB) | payer OTHER, SELFPAY ==
[2024-12-01 08:59] VITALS: BMI 36.0
--- NOTE | 2024-12-01 08:59 | MHC.OFFVIS ---
Vital Signs 12/01/24 08:59 Height 5 ft 6 in Weight 223 lb BMI 36.0 Intake Visit Reasons: OV- Follow up Mallet finger Intake Note: Maribell is a 63 year old right hand dominant female who presents today with her spouse for a follow up visit s/p left distal radius ORIF w/ Dr Alvarez DOS: 04/20/2024 and mallet deformity of left 4th finger. She reports that this finger is feeling better, it is not 100% she has some pain in the knuckles. She would like a new order for OT - she is going to [facility]. She is requesting something for her pain - since she was places on blood thinners and other medications she is unsure what she can and cannot take. Allergies sumatriptan [From Imitrex] Allergy (Severe, Verified 10/19/24 14:21) Palpitations bee pollen [bee stings] Allergy (Verified 10/19/24 14:21) Anaphylaxis latex Allergy (Verified 10/19/24 14:21) Rash HPI HPI OV- Follow up Mallet finger: Details: Maribell is a 63 year old right hand dominant female who presents today with her spouse for a follow up visit s/p left distal radius ORIF w/ Dr Alvarez DOS: 04/20/2024 and mallet deformity of left 4th finger. She reports that this finger is feeling better, it is not 100% she has some pain in the knuckles. She would like a new order for OT - she is going to [facility]. She is requesting something for her pain - since she was places on blood thinners and other medications she is unsure what she can and cannot take. [facility] Surgical History Status post-operative repair of type I or II open fracture of right hip H/O right wrist surgery Social History Alcohol intake: never Patient Tobacco Use Status: Never used Tobacco Current occupational status: unemployed Review of Systems Const All systems reviewed & are unremarkable except as noted in HPI and below Physical Exam Vital Signs: BMI result Body Mass Index 36.0 Extrem Other: Patient is alert, oriented, and in no acute distress. Neuro: Normal sensation of the tips of all digits of the left hand at this time Vascular: Cap refill brisk Pain: Patient reports no tenderness to palpation about the left distal radius ROM: Patient is able to make closed fist with the left hand at this time, with encouragement Patient is able to extend all digits of the left hand fully and without difficulty Patient is able to pronate and supinate the left wrist fully and without difficulty Of note, the patient is able to partially actively extend at the left ring finger DIP joint, but the patient expresses high amount of satisfaction with this new range of motion Joint is able to be passively extended fully and without difficulty Skin: Well-approximated and well-healed incision site noted on the volar aspect of the patient's left wrist No evidence of infection General: No ecchymosis, erythema, or evidence of infection. Psych: Appears grossly normal Affect normal Attitude cooperative Assessment & Plan Assessment & Plan (1) Displaced fracture of left ulna styloid process, initial encounter for closed fracture: Code(s): S52.612A - Displaced fracture of left ulna styloid process, initial encounter for closed fracture Category: Medical (2) Fracture of left distal radius: Code(s): S52.502A - Unspecified fracture of the lower end of left radius, initial encounter for closed fracture Category: Medical (3) Mallet deformity of left ring finger: Code(s): M20.012 - Mallet finger of left finger(s) Category: Medical Plan 1. Left distal radius fracture status post ORIF DOS 04/20/2024 Patient was to be recovering fairly well postoperatively Patient is educated about the typical recovery course At this time, patient is informed that she should absolutely continue working with occupational therapy, as it was very important that she gets better range of motion back in her left hand and wrist Patient was amenable to this plan No further use of the Velcro wrist splint is indicated, patient was informed of this Patient was amenable to this plan 2. Mallet finger of left ring finger Patient is educated about this condition Patient is educated about the typical treatment course At this time, patient was placed into a finger tip splint holding the DIP joint in full extension Patient is a educated that this injury requires 8 hour per day splinting for a further 6 weeks Patient was educated on how to change the splint after the shower Patient was amenable to this plan Patient will follow-up in 6 weeks for reassessment sooner with any acute concerns Orders: Orders OT Evaluation and Treatment Today M25.642 - Stiffness of left hand, not elsewhere classified Coding Level of Care Code Est Pt Level 3 (96127) Diagnoses Displaced fracture of left ulna styloid process, initial encounter for closed fracture S52.612A Fracture of left distal radius S52.502A Mallet deformity of left ring finger M20.012
--- OUTSIDE RECORDS SUMMARY | 2024-12-01 09:10 | XMS_ITS | Clinical Summary ---
Author Organization [facility] Address [address] [place] [address] Phone Care Team Providers Care Gear Technician Name Role Phone Evie Cobos MD Primary Care Provider Allergies Active Allergy Reactions Criticality Noted Date Comments Bee Venom Protein (Honey Bee) 2019 Latex 12/13/2019 Sumatriptan 12/13/2019 Medications acetaminophen (TYLENOL) 325 mg tablet Take 2 tablets (650 mg total) by mouth. 2 Active atorvastatin (LIPITOR) 80 mg tablet 2 Active docusate sodium (COLACE) 100 mg capsule TAKE 1 CAPSULE BY MOUTH TWICE A DAY 2 Active estradioL (ESTRACE) 0.01 % (0.1 mg/gram) vaginal cream APPLY PEA-SIZED AMOUNT VAG QHS FOR 2 WKS AND THEN 3 TIMES WEEKLY 0 Active losartan-hydroCHLOR Othiazide (HYZAAR) 100-25 mg per tablet 2 Active oxyCODONE (ROXICODONE) 5 mg immediate release tablet TAKE 1 TABLET BY MOUTH EVERY 6 HOURS NEEDED FOR MODERATE PAIN (4-6 ON PAIN SCALE) 2 Active Eliquis 5 mg tablet TAKE 1 TAB BY MOUTH 2 TIMES A DAY,X30 DAYS 4 Active amLODIPine (NORVASC) 10 mg tablet TAKE 1 TAB BY MOUTH DAILY AT BEDTIME,X30 DAYS 4 Active ibuprofen (ADVIL,MOTRIN) 600 mg tablet Take 1 tablet (600 mg total) by mouth every 6 (six) hours if needed. for pain 4 Active losartan (COZAAR) 50 mg tablet 4 Active metoprolol succinate (TOPROL-XL) 100 mg 24 hr tablet Take 1 tablet (100 mg total) by mouth 1 (one) time each day. 4 Active ondansetron ODT (ZOFRAN-ODT) 4 mg disintegrating tablet Dissolve 1 tablet (4 mg total) on top of the tongue every 8 (eight) hours if needed. for nausea 4 Active pantoprazole (PROTONIX) 40 mg EC tablet Take 1 tablet (40 mg total) by mouth 1 (one) time each day. 4 Active sertraline (ZOLOFT) 50 mg tablet Take 1 tablet (50 mg total) by mouth 1 (one) time each day in the morning. 4 Active anastrozole (ARIMIDEX) 1 mg Take 1 tablet (1 mg total) by mouth 1 (one) time each day Swallow whole with a drink of water. 30 tablet 5 4 Active calcium carbonate-cholecalc iferol (OYSTER SHELL) 250 mg-3.125 mcg (125 unit) per tablet TAKE 1 TABLET BY MOUTH 1 TIME EACH DAY. 90 tablet 1 5 Active Surgical History Surgery Date Site/Laterality Comments OTHER SURGICAL HISTORY 2017 PROCEDURE: [place] LAPS SURG CHOLECYSTECTOMY W/CHOLANGIOGRAPHY TUBAL LIGATION 1987 PROCEDURE: HISTORICAL TUBAL LIGATION OTHER SURGICAL HISTORY 1974 Bilateral PROCEDURE: KY TONSILLECTOMY PRIMARY/SECONDARY AGE 13/> Medical History Medical History Date Comments Depression 1977 DX:Depression; C OMMENT: since teenager Hypertension 2009 DX:Hypertension Sleep apnea 2007 DX:Sleep apnea; COMMENT: On CPAP 5-12 cm H2O. SS at [facility]. Hyperlipidemia 1977 DX:Hyperlipidemi a; COMMENT: Familiar [...] drink = 0.6 oz pur e alcohol) Comments Unknown Sex and Gender Information Value Date Recorded Sex Assigned at Female 06/07/2024 1:20 PM EST Legal Sex Female 4:36 AM EST Gender Identity Female 06/07/2024 1:20 PM EST Sexual Orientation Straight 06/07/2024 1: 20 PM EST Obstetrics History Last Filed Vital Signs Vital [...] PM EDT [facility] [address] [phone] 12/28/2024 1:45 PM EDT Office Visit [facility] Hematology Oncology [address] [place] [address] Kimberly Malagon MD [address] [place] [address] 07/11/2025 1:15 PM EST Office Visit [facility] [address] [facility] [address] [place] [address] Zuri Lynn MD [address] [facility] [address] [place] [address] Health Maintenance Due Date Last Done Comments COVID-19 Vaccine (#1) 1966 Pneumococcal Vaccine: 50+ Years (1 of 2 - PCV) 1980 Pneumococcal Vaccine: Pediatrics (0 to 5 Years) and At-Risk Patients (6 to 64 Years) (1 of 2 - PCV) 1980 Zoster Vaccines (1 of 2) 1980 Cervical Cancer Screening: P ap Smear 1982 RSV Immunization Adult Patients (1 - Risk 60-74 years 1-dose series) 2021 Colorectal Cancer Screening: Colonoscopy 07/02/2022 Depression Screening 07/02/2022 HIV Screening 07/02/2022 Hepatitis C Screening 07/02/2022 Social Influencers of Health Screening 07/02/2022 Influenza Vaccine (Season Ended) 2025 Hypertension/CHF/CAD Annual BMP Blood Test 08/24/2025 08/24/2024 Breast Cancer Screening 12/27/2025 12/28/19 24, 01/01/2022, 11/29/2020 Cholesterol Screening (Lipid Panel) 08/24/2029 08/24/2024 DTaP,Tdap,and Td Vaccines (2 - Td or [...] patient's age to complete this topic Meningococcal B Vaccine Aged Out No l onger eligible based on patient's age to complete this topic RSV Immunization Patients Under 20 months Aged Out No longer eligible b ased on patient's age to complete this topic Varicella Vaccines Aged Out No longer eligible based on patient's age to complete this topic Procedures Procedure Name Priority Date/Time Associated Diagnosis Comments COMPREHENSIVE METABOLIC PANEL Routine 08/24/2024 8:56 AM EST Pure hypercholesterolemi a Essential hypertension, malignant Pathological fracture of shoulder due to osteoporosis Impaired fasting glucose Encounter for general adult medical examination with abnormal findings LIPID PANEL WITH REFLEX TO DIRECT LDL Routine 08/24/2024 8:56 AM EST Pure hypercholesterolemi a Essential hypertension, malignant Pathological fracture of shoulder due to osteoporosis Impaired fasting glucose Encounter for general adult medical examination with abnormal findings BD BONE DENSITY DXA AXIAL SKELETON Routine 07/10/2024 1:14 PM EST Menopausal and female climacteric states MEKA SCREENING DIGITAL Routine 01/01/2022 5:01 PM EDT Encounter for screening mammogram for malignant neoplasm of breast from Last 3 Months or Most Recently Relevant to Health Maintenance Results * (ABNORMAL) Lipid panel with reflex to direct LDL (08/24/2024 8:56 AM EST) Cholesterol 165 0 - 200 mg/dL LAB CHEMISTRY METHOD 08/24/2024 11:27 AM EST [facility] Triglycerides 316(H) 0 - 150 mg/dL LAB CHEMISTRY METHOD 08/24/2024 11:27 AM EST [facility] HDL 44 >=40 mg/dL LAB CHEMISTRY METHOD 08/24/2024 11:27 AM EST [facility] LDL Calculated 58 0 - 100 mg/dL LAB CHEMISTRY METHOD 08/24/2024 11:27 AM EST [facility] VLDL Cholesterol Chris 63.2 mg/dL LAB CHEMISTRY METHOD 08/24/2024 11:27 AM [facility] Non HDL Chol. (LDL+VLDL) 121 <145 mg/dL LAB CHEMISTRY METHOD 08/24/2024 11:27 AM [facility] Chol/HDL Ratio 3.8 0.0 - 4.4 LAB CHEMISTRY METHOD 08/24/2024 11:27 AM [facility] Blood Venous blood specimen / Unknown Venipuncture / Unknown 08/24/2024 8:56 AM EST 08/24/2024 10:16 AM EST us Evie Cobos MD LAB BLOOD ORDERABLES Final Re sult [facility] [address] [place] [address], [place] [phone] * (ABNORMAL) Comprehensive metabolic panel (08/24/2024 8:56 AM EST) Sodium 139 133 - 145 mmol/L LAB CHEMISTRY METHOD 08/24/2024 11:27 AM [facility] Potassium 3.8 3.5 - 5.5 mmol/L LAB CHEMISTRY METHOD 08/24/2024 11:27 AM [facility] Chloride 107 96 - 110 mmol/L LAB CHEMISTRY METHOD 08/24/2024 11:27 AM [facility] CO2 26 21 - 32 mmol/L LAB CHEMISTRY METHOD 08/24/2024 11:27 AM [facility] Anion Gap 6 3 - 11 LAB CHEMISTRY METHOD 08/24/2024 11:27 AM [facility] Glucose 129(H) 70 - 100 mg/dL LAB CHEMISTRY METHOD 08/24/2024 11:27 AM [facility] BUN 14 5 - 25 mg/dL LAB CHEMISTRY METHOD 08/24/2024 11:27 AM [facility] Creatinine 0.86 0.50 - 1.10 mg/dL LAB CHEMISTRY METHOD 08/24/2024 11:27 AM [facility] eGFR 76 >=60 mL/min/1. 73m2 LAB CHEMISTRY METHOD 08/24/2024 11:27 AM [facility] Comment:Calculation based on the??Chronic Kidney Disease Epidemiology Collaboration (CKD-EPI) equation refit??without adjustment for race. BUN/Creatinine Ratio 16.3 LAB CHEMISTRY METHOD 08/24/2024 11:27 AM [facility] Calcium 9.3 8.5 - 10.5 mg/dL LAB CHEMISTRY METHOD 08/24/2024 11:27 AM [facility] AST (SGOT) 24 10 - 42 unit/L LAB CHEMISTRY METHOD 08/24/2024 11:27 AM [facility] ALT (SGPT) 21 10 - 60 unit/L LAB CHEMISTRY METHOD 08/24/2024 11:27 AM [facility] Alkaline Phosphatase 140(H) 42 - 121 unit/L LAB CHEMISTRY METHOD 08/24/2024 11:27 AM [facility] Total Protein 7.2 6.0 - 8.0 g/dL LAB CHEMISTRY METHOD 08/24/2024 11:27 AM [facility] Albumin 3.7 3.2 - 5.0 g/dL LAB CHEMISTRY METHOD 08/24/2024 11:27 AM [facility] Total Bilirubin 0.5 0.0 - 1.4 mg/dL LAB CHEMISTRY METHOD 08/24/2024 11:27 AM [facility] Blood Venous blood specimen / Unknown Venipuncture / Unknown 08/24/2024 8:56 AM EST 08/24/2024 10:16 AM EST us Evie Cobos MD LAB BLOOD ORDERABLES Final Re sult [facility] [address] [place] [address], [place] [phone] * BD Bone Density DXA Axial Skeleton [...] dual energy x-ray absorptiometry (DXA) in the Gazzang unit. The lumbar spine and left proximal [...] percent ??Hip 0.5 percent. IMPRESSION: Osteopenia. ? [id number] -------- FINAL REPORT -------- Dictated By: Christine Ricci Dictated Date: 07/10/2024 13:28 ET Assigned Physician: Christine Ricci Reviewed and Electronically Signed By: Christine Ricci Signed Date: 07/10/2024 13:30 ET Workstation ID: [id number] Transcribed By: Self Edit Transcribed Date: 07/10/2024 13:28 ET Impressions 07/10/2024 1:30 PM EST Osteopenia. ? [id number] -------- FINAL REPORT -------- Dictated By: Christine Ricci Dictated Date: 07/10/2024 13:28 ET Assigned Physician: Christine Ricci Reviewed and Electronically Signed By: Christine Ricci Signed Date: 07/10/2024 13:30 ET Workstation ID: [id number] Transcribed By: Self Edit Transcribed Date: 07/10/2024 13:28 ET Narrative 07/10/2024 1:30 PM EST History: Low estrogen state due to menopause. Right hip replacement. Personal history of fracture. Comparison: 07/08/22 Findings: Bone densitometry is performed utilizing dual energy x-ray absorptiometry (DXA) in the A [employer] unit. The lumbar spine and left proximal [...] utilizing dual energy x-ray absorptiometry(DXA) in the [employer] unit. The lumbar spine and left proximal [...] Osteoporotic 11.0percent Hip 0.5 percent. IMPRESSION: Osteopenia. [id number] -------- FINAL REPORT -------- Dictated By: Christine Ricci Dictated Date: 07/10/2024 13:28 ET Assigned Physician: Christine Ricci Reviewed and Electronically Signed By: Christine Ricci Signed Date: 07/10/2024 13:30 ET Workstation ID: [id number] Transcribed By: Self Edit Transcribed Date: 07/10/2024 13:28 ET us Kimberly Malagon MD IMG DXA PROCEDURES Edited Re sult - Final * MEKA SCREENING DIGITAL (01/01/2022 5:01 PM EDT) Anatomical Region Laterality Modality Mammography 01/01/2022 3:29 PM EDT Narrative 01/01/2022 5:01 PM EDT [facility] Diagnostic Imaging Department [address] [place] [id number] Patient: ??FRANCHESCAJONATHON ?/Age/Sex: 1960 - 61 - F Unit#: ??[id number] ? Location/Status: ??SPDIMAM/REG CLI ? Mnemonic/Ordering Site: ??DIGSC/SPMAM Ordering Physician: ??EVIE COBOS MD Meka Screening Digital - 01/01/22 - 1599 History: Breast cancer screening. Technique: ?? Bilateral digital mammography. Conventional CC and MLO projections with tomosynthesis MLO views and computer aided detection. Comparison: [facility] 11/29/2020, dating back to 12/26/2010. Findings: ?? Breast tissue consists of fibroglandular tissue diffusely, decreasing sensitivity of mammography, category d density (as calculated by iReveal Volpara software). Oval asymmetry anterior medial right [...] 0: Incomplete. Needs further imaging evaluation, 3340F [id number], [address] Patient information entered into a reminder system with a target date for the next mammogram. [id number] Dictating Physician: ??ROBER RODRIGUEZ MD Electronically Signed by: ??ROBER RODRIGUEZ MD Dic Date/Time: ??01/01/22 1654 Sign date/Time: ??01/01/22 1701 Procedure Note Rober Rodriguez MD - 07/15/2022 [facility] Diagnostic Imaging Department [address] [place] [address] Patient: JONATHON MAURICIO./Age/Sex: 1960 - 61 - F Unit#: [id number] Location/Status: SPDIMAM/REG CLI Mnemonic/Ordering Site: [facility] Ordering Physician: EVIE COBOS MD Meka Screening Digital - 01/01/22 - 1600 History: Breast cancer screening. Technique: Bilateral digital mammography. Conventional CC and MLOprojections with tomosynthesis MLO views and computer aided detection. Comparison: [facility] 11/29/2020, dating back to 12/26/2010. Findings: Breast tissue consists of fibroglandular tissue diffusely, decreasing sensitivity of mammography, category d density (as calculatedby Backupifypara software). Oval asymmetry anterior medial right breast [...] 0: Incomplete. Needs further imaging evaluation, 3340F [id number], [address]48 Patient information entered into a reminder system with a target date forthe next mammogram. [id number] Dictating Physician: ROBER RODRIGUEZ MD Electronically Signed by: ROBER RODRIGUEZ MD Dic Date/Time: 01/01/22 1654 Sign date/Time: 01/01/22 1701 us Evie Cobos MD IMG BI PROCEDURES Final Resul t from Last 3 Months or Most Recently Relevant to Health Maintenance Insurance Advance Directives Documents on File Type Date Recorded Patient Client Service Consultant Expl anation Health Care Decision (hx) 04/15/2023 [...] (hx) 04/15/2023 AD BARTH DIRECTIVE Care Teams Gear Technician Relationship Specialty Start Date End Date Evie Cobos MD [facility] [address] PCP - General Internal Medicine 03/24/18
--- OUTSIDE RECORDS SUMMARY | 2024-12-01 09:10 | XMS_ITS | Clinical Summary ---
Author Organization [facility] Address [address] [place] [address] Care Team Providers Care 6Th Grade Teacher Name Role Phone Pcp, No Primary Care Provider Unavailabl e Social History Tobacco Use Types Packs/Day Years Used Date Smoking Tobacco: Never Assessed Comments Unknown Sex and Gender Information Value Date Recorded Sex Assigned at Not on file Legal Sex Female 11:01 AM EST Gender Identity Not on file Sexual Orientation Not on file Plan of Treatment Health Maintenance Due Date Last Done Comments Hepatitis C Virus Screening 1961 HIV Screening 1974 DTaP/Tdap/Td Vaccines (1 - Tdap) 1980 Pneumococcal Vaccines 50+ (1 of 1 - PCV) 10/23/2011 Zoster (Shingles) Vaccine (1 of 2) 10/23/2011 COVID-19 Vaccine ( - 2023-2 5 season) 2024 RSV Vaccine 60 years and old er and Patients (1 - 1-dose 75+ series) 2036 Hepatitis B Vaccines Aged Out No long er eligible based on patient's age to complete this topic Care Teams 6Th Grade Teacher Relationship Specialty Start Date End Date Pcp, No PCP - General General Medicine 05/27/20
--- OUTSIDE RECORDS SUMMARY | 2024-12-01 09:10 | XMS_ITS | Clinical Summary ---
Author Organization [facility] Address [address] [place] [address] Care Team Providers Care Deputy Clerk Name Role Phone Evie Link MD Primary [...] daily apply a thin ribbon on toothbrush. [place] thoroughly once daily for two minutes, preferably [...] age to complete this topic Care Teams Deputy Clerk Relationship Specialty Start Date End Date Evie Link MD [address] [place] [phone] PCP - General Internal Medicine 01/29/22
--- OUTSIDE RECORDS SUMMARY | 2024-12-01 09:10 | XMS_ITS | Encounter Summary ---
Author Organization [facility] [facility] Address [address] [place] [address] Care Team Providers Care Golf Cart Repairer Name Role Phone Evie Link MD Primary Care Provider [phone] Encounter Details Date Type Department Care Team Description 03/27/2022 Social Work [facility] Oncology Services [address] [place] [address] James Keller, [facility] Social History Tobacco Use Types Packs/Day Years [...] on filedocumented in this encounter Care Teams Golf Cart Repairer Relationship Specialty Start Date End Date Evie Link MD [address] [phone] PCP - General Internal Medicine 01/29/22 documented as of this encounter
== END 2024-12-01 09:12 | disposition home or self-care (01) ==
LOC: HO.HOS 08:56
PROVIDERS: PCP Internal Medicine
DX: S52.612A Displaced fracture of left ulna styloid process, initial encounter for closed fracture (principal); S52.502A Unspecified fracture of the lower end of left radius, initial encounter for closed fracture; M20.012 Mallet finger of left finger(s)
CPT/HCPCS: 99213

== ENCOUNTER → 2024-12-01 08:56 | Outpatient (BNVA) | payer OTHER, SELFPAY | PROVIDERS: PCP Internal Medicine | DX: S52.612D Displaced fracture of left ulna styloid process, subsequent encounter for closed fracture with routine healing (principal); S52.502D Unspecified fracture of the lower end of left radius, subsequent encounter for closed fracture with routine healing; M79.645 Pain in left finger(s); X58.XXXD Exposure to other specified factors, subsequent encounter; Z87.39 Personal history of other diseases of the musculoskeletal system and connective tissue; Z98.890 Other specified postprocedural states | CPT/HCPCS: 99212 ==

== ENCOUNTER 2025-01-12 10:04 | Outpatient (AMB) | payer OTHER, SELFPAY ==
--- NOTE | 2025-01-12 10:14 | MHC.OFFVIS ---
Vital Signs 01/12/25 10:15 Height 5 ft 6 in Weight 223 lb BMI 36.0 Intake Visit Reasons: OV-Mallet finger, Left hand ring finger follow up Intake Note: Maribell is a 64 year old right hand dominant female who presents today for a follow up visit for her mallet finger of left ring finger. Last visit she was given a mallet finger splint. States she is using her splint however while in office she removed her splint and bent at her DIP. Allergies sumatriptan (From Imitrex) Allergy (Severe, Verified 01/12/25 10:17) Palpitations bee pollen (bee stings) Allergy (Verified 01/12/25 10:17) Anaphylaxis latex Allergy (Verified 01/12/25 10:17) Rash HPI HPI OV-Mallet finger, Left hand ring finger follow up: Details: Maribell is a 64 year old right hand dominant female who presents today for a follow up visit for her mallet finger of left ring finger. Last visit she was given a mallet finger splint. States she is using her splint however while in office she removed her splint and bent at her DIP. Patient reports that she has improved significantly in all facets since previous evaluation. No other acute complaints or concerns at this time. Denies numbness or tingling in the left upper extremity. [facility] Surgical History Status post-operative repair of type I or II open fracture of right hip H/O right wrist surgery Social History Alcohol intake: never Patient Tobacco Use Status: Never used Tobacco Current occupational status: unemployed Review of Systems Const All systems reviewed & are unremarkable except as noted in HPI and below Physical Exam Vital Signs: BMI result Body Mass Index 36.0 Extrem Other: Patient is alert, oriented, and in no acute distress. Neuro: Normal sensation of the tips of all digits of the left hand at this time Vascular: Cap refill brisk Pain: Patient reports no tenderness to palpation about the left distal radius ROM: Patient is able to make closed fist with the left hand at this time, with encouragement Patient is able to extend all digits of the left hand fully and without difficulty Patient is able to pronate and supinate the left wrist fully and without difficulty Of note, the patient is able to actively extend at the left ring finger DIP joint to approximately 10 degrees Joint is able to be passively extended fully and without difficulty Skin: Well-approximated and well-healed incision site noted on the volar aspect of the patient's left wrist No evidence of infection General: No ecchymosis, erythema, or evidence of infection. Psych: Appears grossly normal Affect normal Attitude cooperative Assessment & Plan Assessment & Plan (1) Displaced fracture of left ulna styloid process, initial encounter for closed fracture: Code(s): S52.612A - Displaced fracture of left ulna styloid process, initial encounter for closed fracture Category: Medical (2) Fracture of left distal radius: Code(s): S52.502A - Unspecified fracture of the lower end of left radius, initial encounter for closed fracture Category: Medical (3) Mallet deformity of left ring finger: Code(s): M20.012 - Mallet finger of left finger(s) Category: Medical Plan 1. Mallet finger of left ring finger Patient is educated about this condition Patient is educated about the typical treatment course At this time, patient was placed into a finger tip splint holding the DIP joint in full extension Patient is a educated that this injury requires 8 hour per day splinting for a further 6 weeks Patient was educated on how to change the splint after the shower Patient was amenable to this plan Patient will follow-up as needed Coding Level of Care Code Est Pt Level 3 (19248) Diagnoses Displaced fracture of left ulna styloid process, initial encounter for closed fracture S52.612A Fracture of left distal radius S52.502A Mallet deformity of left ring finger M20.012
[2025-01-12 10:15] VITALS: BMI 36.0
--- OUTSIDE RECORDS SUMMARY | 2025-01-12 10:22 | XMS_ITS | Clinical Summary ---
Author Organization [facility] Address [address] [place] [address] Care Team Providers Care Tour Coordinator Name Role Phone Patricia Stanton DMD Primary Care Provider [phone] Source Comments PLEASE NOTE, if this patient [...] daily apply a thin ribbon on toothbrush. [place] thoroughly once daily for two minutes, preferably [...] Active Active Problems No known active problems Social History Tobacco Use Types Packs/Day Years [...] Care Team (Late st Contact Info) Description 02/23/2025 1:40 PM EDT Office Visit [facility] [address] [place] [phone] [place] [address] [place] [address] Health Maintenance Due Date Last Done Comments Anxiety Screening 1960 Diabetes Screening 1961 HPV Screening 1960 Hepatitis C Screening 1960 Lipid Screening 1961 Pap + HPV 1961 Tobacco Screening 1961 HIV Screening 1976 Imm-DTaP/Tdap/Td (1 - Tdap) 1980 Cervical Cancer Screening 1982 Pap Smear 1982 Breast Cancer Screening (Mammogram) 2001 CT Colonography 2006 Colonoscopy 2006 Colorectal Cancer Screening 2006 FIT/gFOBT 2006 Fecal DNA 2006 Flexible Sigmoidoscopy 2006 Imm-Zoster, Recombinant (1 of 2) 10/23/2011 [id number] ( season) 2024 Alcohol and Drug Screen 07/26/2024 Depression Annual Screen 07/26/2024 Imm-Influenza (Season Ended) 2025 Hypertension Screening (#1) 04/22/2025 Dental BW 04/24/2025 04/22/2024 Dental Examination 04/24/2025 04/22/2024 Dental Perio Charting 04/24/2025 04/22/2024 Dental Prophy 04/24/2025 04/22/2024 Dental FMX/Pano 04/24/2029 04/22/2024 Cervical Ablation/Cold-Knife Conization Discontinued Cervical Cryotherapy Discontinued Colposcopy Discontinued Endometrial Biopsy Discontinued Excision/Leep Discontinued HPV Genotyping Discontinued Vaginal Pap Discontinued Vulvoscopy Discontinued Procedures Procedure Name Priority Date/Time Associated Diagnosis Comments INTRAORAL - COMP SERIES OF RADIOGRAPHIC IMAGES [...] Most Recently Relevant to Health Maintenance [place] D[place] Care Teams Tour Coordinator Relationship Specialty Start Date End Date Patricia Stanton DMD [address] [place] [address] PCP - General 08/26/19
== END 2025-01-12 10:32 | disposition home or self-care (01) ==
LOC: HO.HOS 10:05
PROVIDERS: PCP Internal Medicine
DX: S52.612A Displaced fracture of left ulna styloid process, initial encounter for closed fracture (principal); S52.502A Unspecified fracture of the lower end of left radius, initial encounter for closed fracture; M20.012 Mallet finger of left finger(s)
CPT/HCPCS: 99213

== ENCOUNTER → 2025-01-12 10:04 | Outpatient (BNVA) | payer OTHER, SELFPAY | PROVIDERS: PCP Internal Medicine | DX: M20.012 Mallet finger of left finger(s) (principal); S52.612D Displaced fracture of left ulna styloid process, subsequent encounter for closed fracture with routine healing; S52.502D Unspecified fracture of the lower end of left radius, subsequent encounter for closed fracture with routine healing; X58.XXXD Exposure to other specified factors, subsequent encounter | CPT/HCPCS: 99212 ==